=== PATIENT | female | born 1970 | race Caucasian/White ===

== ENCOUNTER 2025-09-04 13:58 | Emergency (ER) | payer MEDICAID, SELFPAY ==
--- OUTSIDE RECORDS SUMMARY | 2025-07-29 15:00 | XMS_ITS | Encounter Summary ---
Author Organization [place] [address] Care Team Providers Care Vending Manager Name Role Phone Jose Manuel Mooney MD Unavailable [phone] Reynaldo Cervantes MD Unavailable [phone] Corie Hennessy MD Unavailable [phone] Job Arboleda MD Primary Care Provider [phone] Reason for Referral * Genetic Lab Test (Routine) - Authorization Not Needed Specialty Diagnoses / Procedures Referred By Austin santoro Referred To Contact Diagnoses Screening for colon cancer Procedures Job Nascimento MD [address] [place] [address] [place] [address] Phone: tel: fax: Referral ID Status Reason Start Date Expiration Date Visits Requested Visits Authorized [id number] Authorization Not Needed 07/29/2026 1 1 Reason for Visit * Reason Comments Annual Exam Chest Pain Sometimes has chest pain/nausea comes and goes but feels fine today Encounter Details Date Type Department Care Team (Latest Contact Info) Description 07/29/2025 3:00 PM EST Office Visit [facility] [address] [place] [address] Job Arboleda MD [address] [place] [address] [address], [place] [address] Annual physical exam (Primary Dx); Essential hypertension; Screening for colon cancer; Type 2 diabetes mellitus with hyperlipidemia (HCC); Diabetic peripheral neuropathy (HCC) Social History Tobacco Use Types Packs/Day Years Used Date Smoking Tobacco: Never Passive Smoke Exposure: Never Smokeless Tobacco: Never Alcohol Use Standard Drinks/Week Comments No 0 (1 standard drink = 0.6 oz pur e alcohol) Overall Financial Resource Strain (CARDIA) Answe r Date Recorded How hard is it for you to pa y for the very basics like food, housing, medical care, and heating? Not hard at all 07/13/2021 PHQ-2 Answer Date Recorded PHQ-2 Total Score 0 07/29/2025 [facility] - Occupational Stress Questionnaire Answer Date Recorded Do you feel stress - tense, restless, nervous, or anxious, or unable to sleep at night because your mind is troubled all the time - these days? Only a little 07/13/2021 Exercise Vital Sign Answer Date Recorde d On average, how many days pe r week do you engage in moderate to strenuous exercise (like a brisk walk)? 3 days 07/13/2021 On average, how many minutes do you engage in exercise at this level? 30 min 07/13/2021 Hunger Vital Sign Answer Date Recorded Within the past 12 months, y ou worried that your food would run out before you got the money to buy more. Never true 07/13/20 21 Within the past 12 months, t he food you bought just didn't last and you didn't have money to get more. Never true 07/13/2021 PRAPARE - Transportation Answer Date Re corded In the past 12 months, has l ack of transportation kept you from medical appointments or from getting medications? No 04/2021 In the past 12 months, has l ack of transportation kept you from meetings, work, or from getting things needed for daily living? No 07/13/2021 Sexually Active Control Partners Comments Yes Post-menopausal Male Comments No Sex and Gender Information Value Date Recorded Sex Assigned at Not on file Legal Sex Female 1:04 PM EDT Gender Identity Not on file Sexual Orientation Not on file Occupation Industry Job Start Date Job End Date disable for heart Not on file Not on file Not on bunny e documented as of this encounter Last Filed Vital Signs Vital Sign Reading Time Taken Comments Blood Pressure 130/70 07/29/2025 2:53 PM EST Pulse 73 07/29/2025 2:53 PM EST Temperature 36.7 C (98 F) 07/29/2025 2:53 PM EST Respiratory Rate 18 07/29/2025 2:53 PM EST Oxygen Saturation 98% 07/29/2025 2:53 PM EST Inhaled Oxygen Concentration - - Weight 87.5 kg (193 lb) 07/29/2025 2:53 PM EST Height 152.4 cm (5') 07/29/2025 2:53 PM EST Body Mass Index 37.69 07/29/2025 2:53 PM EST documented in this encounter Functional Status * Is the person deaf or does he/she have serious difficulty hearing? Answer Date of Assessment Author No 11/30/2022 10:25 AM Wei Tapia MA * Is the person blind or does he/she have serious difficulty seeing even when wearing glasses? Answer Date of Assessment Author No 11/30/2022 10:25 AM Wei Tapia MA * Does this person have serious difficulty walking or climbing stairs? Answer Date of Assessment Author No 11/30/2022 10:25 AM Wei Tapia MA * Does this person have difficulty dressing or bathing? Answer Date of Assessment Author No 11/30/2022 10:25 AM Wei Tapia MA * Because of a physical, mental or emotional condition, does this person have difficulty doing errands alone such as visiting a doctor's office or shopping? Answer Date of Assessment Author No 11/30/2022 10:25 AM Wei Tapia MA * PHQ-9 Total Score Answer Date of Assessment Author 0 07/29/2025 2:57 PM EST Miguelangel Navarro MA * Over the last 2 weeks, how often have you been bothered by any of the following problems? Question Answer Date of Assessment Author Little interest or pleasure in doing things 0 07/29/2025 2:57 PM EST Meghna Navarro MA Feeling down, depressed, or hopeless 0 07/29/2025 2:57 PM Meghna Stevenson MA PHQ-2 Total Score 0 07/29/2025 2:57 PM Meghna Stevenson MA * PHQ-2 Total Score Answer Date of Assessment Author 0 07/29/2025 2:57 PM Miguelangel Stevenson MA documented as of this encounter Mental Status * Because of a physical, mental or emotional condition, does this person have serious difficulty concentrating, remembering or making decisions? Answer Entry Date Author No 11/30/2022 10:25 AM EDT Wei Gonzalez MA documented in this encounter Ordered Prescriptions Prescription Sig Dispense Quantity Refills Last Filled Start Date End Date pregabalin (LYRICA) 50 mg Oral CapsuleIndications :Diabetic peripheral neuropathy (HCC) Take 1 Capsule by mouth 3 times daily. 90 Capsule 2 07/29/2025 documented in this encounter Progress Notes * Job Arboleda MD - 07/29/2025 3:00 PM ESTAssociated Problem(s): Essential hypertension Hypertension at goal today continue current regiment Orders: COMPREHENSIVE METABOLIC PANEL * Job Arboleda MD - 07/29/2025 3:00 PM ESTAssociated Problem(s): Type 2 diabetes mellitus with hyperlipidemia (HCC) Up-to-date on diabetic eye exam and microalbumin screens. Follow-up A1c and adjust diabetic regimenas needed. Orders: TSH REFLEX TO FT4 COMPREHENSIVE METABOLIC PANEL HEMOGLOBIN A1C LIPID PANEL REFLEX * Job Arboleda MD - 07/29/2025 3:00 PM ESTAssociated Problem(s): Diabetic peripheral neuropathy (HCC) Orders: pregabalin (LYRICA) 50 mg Oral Capsule; Take 1 Capsule by mouth 3 times daily. Diabetic neuropathy well-controlled with current dose of Lyrica. No reported side effects of drowsiness or confusion. * Job Arboleda MD - 07/29/2025 3:00 PM EST Assessment & Plan Annual physical exam Orders: TSH REFLEX TO FT4 COMPREHENSIVE METABOLIC PANEL HEMOGLOBIN A1C LIPID PANEL REFLEX CBC WITH DIFF Colon cancer screening order with Cologuard testing per below. Up-to-date on Pap smear and breast cancer screening. Follow-up screening labs Essential hypertension Hypertension at goal today continue current regiment Orders: COMPREHENSIVE METABOLIC PANEL Screening for colon cancer Discussed risk benefits and options for colon cancer screening patient agreed to screening as ordered with Cologuard testing. Previous history of colonoscopy but that was normal no colon polyps at that time Orders: COLOGUARD; Future Type 2 diabetes mellitus with hyperlipidemia (HCC) Up-to-date on diabetic eye exam and microalbumin screens. Follow-up A1c and adjust diabetic regimenas needed. Orders: TSH REFLEX TO FT4 COMPREHENSIVE METABOLIC PANEL HEMOGLOBIN A1C LIPID PANEL REFLEX Diabetic peripheral neuropathy (HCC) Orders: pregabalin (LYRICA) 50 mg Oral Capsule; Take 1 Capsule by mouth 3 times daily. Diabetic neuropathy well-controlled with current dose of Lyrica. No reported side effects of drowsiness or confusion. Progress Note: Vitals: 07/29/25 1453 BP: 130/70 Pulse: 73 Resp: 18 Temp: 98 ??F (36.7 ??C) TempSrc: Temporal SpO2: 98% Weight: 193 lb (87.5 kg) Height: 5' (1.524 m) Body mass index is 37.69 kg/m??. SUBJECTIVE: Chief Complaint Patient presents with Annual Exam Chest Pain Sometimes has chest pain/nausea comes and goes but feels fine today HPI: Well Adult: Subjective Ms. Stewart is a 55 y.o. female here for an annual wellness visit. Has a history of diabetes. Due for refill of Lyrica for diabetic neuropathy. Symptoms well-controlled with this. Sugars are typically well-controlled less than 150 for the most part. Due for colon cancer screening. Up-to-date on breast cancer screening and cervical cancer screening. Diet: Eats a varied diet Exercise: Limited physical activity Activities of Daily Living: Functional Level: Self-care ADL Limitations: none Social Interaction Screen: Do you have concerns about issues that may impact social interaction such as developmental or behavioral/mental health conditions? no Health Maintenance Due Topic Date Due Colon Cancer Screening 05/22/2025 Health Maintenance Topic Date Due Colon Cancer Screening 05/22/2025 Hemoglobin A1c 07/30/2025 (Originally 07/20/2025) Zoster (1 of 2) 07/30/2025 (Originally 2018) COVID-19 Vaccine (1 - 2024- season) 2025 (Originally 05/06/2025) Pneumococcal Vaccine 50+ (1 of 1 - PPSV23, PCV20, or PCV21) 07/30/2025 (Originally 08/05/2016) Hepatitis B Vaccine (1 of 3 - 19+ 3-dose series) 07/30/2025 (Originally 1987) Lipids 01/17/2026 Kidney Health: eGFR 01/17/2026 Kidney Health: uACR 01/18/2026 Annual Wellness Exam 07/29/2026 Diabetic Eye Exam 09/03/2026 Breast Cancer Screening 10/18/2026 DTaP/TDaP/Td (2 - Td or Tdap) 07/05/2027 Cervical Cancer Screening 12/07/2028 Influenza Vaccine Completed Meningococcal B Vaccine Aged Out Immunization History Administered Date(s) Administered Influenza Patient Reported 07/23/2013, 06/10/2016 Influenza Seasonal Injectable 07/23/2013 Influenza Seasonal Injectable PF 08/09/2014, 07/29/2015, 08/06/2024, 05/31/2025 Influenza Vaccine Quadrivalent 07/05/2017 Influenza Vaccine Quadrivalent PF 08/18/2023 Influenza Vaccine, Unspecified Formulation 06/05/2016 Influenza Virus Vaccine Quadrivalant, Flublok 12/03/2019, 05/18/2021, 06/08/2022 Pneumococcal Conjugate Vaccine 13 Valent 06/10/2016 Tdap 07/05/2017 Problem List[1] Past Medical History[2] Surgical History[3] Allergies[4] Medications ordered prior to the current encounter[5] Social History[6] Family History[7] No results found. No results found for this visit on 07/29/25. Patient Care Team: Job Arbloeda MD as PCP - General (Family Medicine) Jose Manuel Mooney MD as Physician (Internal Medicine-Gastroenterology) Reynaldo Cervantes MD (Internal Medicine-Cardiovascular Disease) Corie Hennessy MD as Consulting Physician (Internal Medicine-Endocrinology, Diabetes & Metabolism) Lab Results Component Value Date WBC 9.9 12/11/2024 HGB 14.0 12/11/2024 HCT 44.8 12/11/2024 PLT 368 12/11/2024 CHOLESTEROL 124 01/17/2025 TRIG 101 01/17/2025 HDL 40 01/17/2025 LDLCALC 65 01/17/2025 ALT 14 12/11/2024 AST 19 12/11/2024 NA 140 01/17/2025 K 3.3 (L) 01/17/2025 CL 102 01/17/2025 CREATININE 0.75 01/17/2025 BUN 13 01/17/2025 CO2 27 01/17/2025 TSH 0.244 (L) 11/04/2023 INR 0.96 09/03/2021 GLUCOSE 97 01/05/2023 GLU 126 (H) 01/17/2025 HGBA1C 6.6 (H) 01/17/2025 TSHREFLEX 0.556 08/20/2024 Additional issues addressed today: Review of Systems Constitutional: Negative for activity change, chills, diaphoresis and fever. HENT: Negative for trouble swallowing and voice change. Eyes: Negative for visual disturbance. Respiratory: Negative for cough and shortness of breath. Cardiovascular: Negative for chest pain and palpitations. Gastrointestinal: Negative for diarrhea, nausea and vomiting. Musculoskeletal: Negative for gait problem and myalgias. Skin: Negative for rash. Neurological: Negative for dizziness and headaches. Psychiatric/Behavioral: Negative for decreased concentration, dysphoric mood, sleep disturbance andsuicidal ideas. The patient is not nervous/anxious. OBJECTIVE: Physical Exam Vitals reviewed. Constitutional: General: She is not in acute distress. Appearance: She is well-developed. She is not diaphoretic. HENT: Head: Normocephalic and atraumatic. Right Ear: Tympanic membrane normal. Left Ear: Tympanic membrane normal. Eyes: Pupils: Pupils are equal, round, and reactive to light. Cardiovascular: Rate and Rhythm: Normal rate and regular rhythm. Pulmonary: Effort: Pulmonary effort is normal. Breath sounds: Normal breath sounds. No wheezing. Abdominal: Palpations: Abdomen is soft. Tenderness: There is no abdominal tenderness. There is no guarding or rebound. Musculoskeletal: Right lower leg: No edema. Left lower leg: No edema. Skin: Findings: No rash. Neurological: General: No focal deficit present. Mental Status: She is alert and oriented to person, place, and time. Psychiatric: Behavior: Behavior normal. Thought Content: Thought content normal. Judgment: Judgment normal. [1] Patient Active Problem List Diagnosis Obesity Mixed hyperlipidemia Mild persistent asthma without complication ST elevation myocardial infarction involving left anterior descending (LAD) coronary artery (HCC) ASHD (arteriosclerotic heart disease) Essential hypertension Fibromyalgia Anxiety and depression Irritable bowel syndrome with both constipation and diarrhea Unstable angina (HCC) Gastroesophageal reflux disease without esophagitis Mixed incontinence Chronic midline low back pain without sciatica Paresthesia of both hands Encounter for medication management Insomnia, persistent Type 2 diabetes mellitus with hyperlipidemia (HCC) Thyroid malignant neoplasm (HCC) Postsurgical hypothyroidism Diabetic peripheral neuropathy (HCC) Type 2 diabetes mellitus without retinopathy (HCC) Refractive error Allergic conjunctivitis of both eyes Primary open-angle glaucoma, bilateral, indeterminate stage [2] Past Medical History: Diagnosis Date Anxiety and depression Arthritis back Asthma inhaler CAD (coronary artery disease) multiple stents ( 5) Cancer (HCC) thyroid Depression Fibromyalgia Glaucoma (increased eye pressure) Headache(784.0) Heartburn Hyperlipidemia Hypertension Hyperthyroidism Impaired glucose tolerance 06/25/2016 Irritable bowel syndrome Mixed incontinence 05/18/2019 Other specified disorder of kidney and ureter frequency Pneumonia 2005 Solitary thyroid nodule 06/22/2021 Thyroid cancer (HCC) Thyroid disease cancer Type 2 diabetes mellitus with diabetic chronic kidney disease (HCC) 07/14/2021 Ulcer 2001 Unspecified sleep apnea no machine [3] Past Surgical History: Procedure Laterality Date CARDIAC CATHETERIZATION CHOLECYSTECTOMY, LAPAROSCOPIC 02/05/2013 Surgeon: Mick Orozco MD; Location: [facility] OR; Service: COLONOSCOPY 2014 CORONARY ANGIOPLASTY CORONARY ANGIOPLASTY WITH STENT PLACEMENT 03/17/2016 3 stents CORONARY PERCUTANEOUS INTERVENTION(PCI) N/A 02/04/2019 Surgeon: Matthias Mcintyre MD; Location: [facility]; Service: Cardiac FINGER SURGERY 2002 index finger on left hand to repair a nerve HERNIA REPAIR 1974 PELVIC LAPAROSCOPY 2007 THYROIDECTOMY Right 09/07/2021 total thyroidectomy, selective neck dissection; Surgeon: Kenroy Frausto MD; Location: ED MAIN OR; Service: ENT [4] Allergies Allergen Reactions Ciprofloxacin Other (See Comments) Effects muscles/muscle strain (pt has fibromyalgia) Levaquin [Levofloxacin] Other (See Comments) Effects muscles (pt has fibromyalgia) Adhesive Rash Erythromycin Nausea Only [5] Current Outpatient Medications on File Prior to Visit Medication Sig Dispense Refill acetaminophen (TYLENOL) 500 mg Oral Tablet Take 1,000 mg by mouth 2 times daily as needed for Pain. albuterol (PROVENTIL HFA;VENTOLIN HFA) 90 mcg/actuation Inhl HFA Aerosol Inhaler Inhale 2 Puffs into the lungs every 4 hours as needed for Wheezing. 1 Each 2 APPLE CIDER VINEGAR ORAL Take by mouth. aspirin 81 mg Oral Tablet, Delayed Release (E.C.) Restart on 09/11/21 1 Tablet 0 Blood-Glucose Meter Misc Kit Please dispense what is covered by insurance. 1 Kit 0 cetirizine (ZYRTEC) 10 mg Oral Tablet Take 1 Tablet by mouth daily. 30 Tablet 2 diclofenac (VOLTAREN) 1 % Top Gel Apply 2 g topically 4 times daily. 100 g 1 dicyclomine (BENTYL) 20 mg Oral Tablet Take 1 Tablet by mouth 3 times daily as needed. 90 Tablet 2 Digestive Enzymes Oral Capsule Take by mouth. DULoxetine 40 mg Oral Capsule, Delayed Release(E.C.) TAKE 1 CAPSULE BY MOUTH EVERY DAY 90 Capsule 0 empagliflozin (JARDIANCE) 10 mg Oral Tablet TAKE 1 TABLET BY MOUTH EVERY DAY 100 Tablet 1 famotidine (PEPCID) 40 mg Oral Tablet Take 1 Tablet by mouth 2 times daily. 180 Tablet 3 fluticasone propionate (FLONASE) 50 mcg/actuation Nasl [place], Suspension SPRAY 2 SPRAYS BY NASAL ROUTE DAILY 16 mL 2 fluticasone propionate (FLOVENT HFA) 220 mcg/actuation Inhl HFA Aerosol Inhaler INHALE 2 PUFFS INTOTHE LUNGS TWICE A DAY 12 Each 0 fructooligosaccharides (PREBIOTIC FIBER, FOS,) 2.5 gram Oral Tablet, Chewable Take by mouth. hydroCHLOROthiazide 12.5 mg Oral Tablet Take 1 Tablet by mouth daily. 90 Tablet 3 ipratropium (ATROVENT) 21 mcg (0.03 %) Nasl [place], Non-Aerosol 2 Sprays by Nasal route 3 times daily. 30 mL 2 KLOR-CON M10 10 mEq Oral Tab Sust.Rel. Particle/Crystal TAKE 1 TABLET BY MOUTH EVERY DAY 90 Tablet 3 Lancets [facility] Please dispense what is covered by insurance. 100 Each 2 latanoprost (XALATAN) 0.005 % Opht Drops APPLY 1 DROP TO EYE NIGHTLY. 2.5 mL 3 LEVOthyroxine (SYNTHROID) 75 mcg Oral Tablet TAKE 1 TABLET BY MOUTH EVERY DAY 100 Tablet 0 lisinopriL (PRINIVIL;ZESTRIL) 10 mg Oral Tablet TAKE 1 TABLET BY MOUTH EVERY DAY 100 Tablet 1 metFORMIN (GLUCOPHAGE XR) 500 mg Oral ER 24 hr tablet TAKE 1 TABLET BY MOUTH EVERY DAY WITH BREAKFAST 100 Tablet 1 methocarbamoL (ROBAXIN) 500 mg Oral Tablet TAKE 1 TABLET BY MOUTH THREE TIMES A DAY 90 Tablet 2 metoprolol (LOPRESSOR) 25 mg Oral Tablet TAKE 1 TABLET BY MOUTH TWICE A DAY 200 Tablet 2 naproxen (NAPROSYN) 500 mg Oral Tablet TAKE 1 TABLET BY MOUTH TWICE A DAY WITH FOOD 60 Tablet 2 olopatadine (PATADAY) 0.2 % Opht Drops Place 1 Drop into both eyes daily. 5 mL 3 ondansetron (ZOFRAN-ODT) 4 mg Oral Tablet, Rapid Dissolve Dissolve 1 Tablet by mouth every 4 hours as needed for Nausea. 20 Tablet 0 ONETOUCH ULTRA TEST [facility] USE 1 STRIP DAILY 50 Strip 11 rosuvastatin (CRESTOR) 40 mg Oral Tablet TAKE 1 TABLET BY MOUTH EVERY DAY AT NIGHT 90 Tablet 2 triamcinolone (KENALOG) 0.1 % Top Cream Apply topically 2 times daily. 80 g 2 No current facility-administered medications on file prior to visit. [6] Social History Socioeconomic History Marital status: Spouse name: None Number of children: None Years of education: None Highest education level: None Occupational History Occupation: disable for heart Tobacco Use Smoking status: Never Passive exposure: Never Smokeless tobacco: Never Vaping Use Vaping status: Never Used Substance and Sexual Activity Alcohol use: No Drug use: Never Sexual activity: Yes Partners: Male control/protection: Post-menopausal Social Drivers of Health Financial Resource Strain: Low Risk (07/13/2021) Overall Financial Resource Strain (CARDIA) Difficulty of Paying Living Expenses: Not hard at all Food Insecurity: No Food Insecurity (07/13/2021) Hunger Vital Sign Worried About Running Out of Food in the Last Year: Never true Ran Out of Food in the Last Year: Never true Transportation Needs: No Transportation Needs (07/13/2021) PRAPARE - Transportation Lack of Transportation (Medical): No Lack of Transportation (Non-Medical): No Physical Activity: Insufficiently Active (07/13/2021) Exercise Vital Sign Days of Exercise per Week: 3 days Minutes of Exercise per Session: 30 min Stress: No Stress Concern Present (07/13/2021) [employer] [place] [facility] [employer] [facility] - Occupational Stress Questionnaire Feeling of Stress : Only a little [7] Family History Problem Relation Age of Onset Heart Disease Mother 50 [place] in 50's but at age 76 Diabetes Mother Depression Mother Thyroid Disease Mother Stroke Mother Cancer Father lung Depression Father Heart Disease Maternal Grandmother Diabetes Maternal Grandmother Thyroid Disease Maternal Grandmother High Cholesterol Sister High Blood Pressure Sister Alcohol Abuse Brother Back Problems Brother High Blood Pressure Sister High Cholesterol Sister Osteoporosis Sister Back Problems Brother * Caroline Washington - 07/29/2025 3:00 PM EST Venipuncture in the left antecubital vein with 21 gauge needle, length 1 1/2 inch. documented in this encounter Plan of Treatment Upcoming Encounters Date Type Department Care Team (Late st Contact Info) Description 09/09/2025 1:05 PM EST Office Visit [facility] [address] [facility] [address] [place] [address] Silvino Marcus OD [address] [place] [address] 11/06/2025 1:50 PM EST Office Visit [facility] [address] [address] Reynaldo Cervantes MD [address] [place] [address] [place] [address] Scheduled Orders Name Type Priority Associated Diagnoses Orde r Schedule COLOGUARD Microbiology Routine Screening for colon cancer 1 Occurrences starting 07/29/2025 until 07/29/2026 documented as of this encounter Goals Goal Patient Goal Type Associated Problems Recent Progress Patient-Stated? Author Blood Pressure < 140/90 Blood Pressure 130/70(2024 2:53 PM EST) No Alma Delia Manriquez L, RMA Maintain a healthy diet, exercise regularly and maintain an ideal body weight General No DeclanMarvinya L, RMA BMI (Calculated) < 30 General 37.8(07/29/20 2:53 PM EST) No Mallory Dickinson APRN A1C < 7.0 General On track( 10:44 AM EDT) Yes Virgen Lincoln RN Will take medications as directed by provider General On track( 10:44 AM EDT) Yes Virgen Lincoln RN HEMOGLOBIN A1C < 7 Result Component 6.2( 3:15 PM EST) No Mallory Dickinson APRN documented as of this encounter Procedures Procedure Name Priority Date/Time Associated Diagnosis Comments LIPID PANEL REFLEX Routine 07/29/2025 3: 15 PM EST Annual physical exam Type 2 diabetes mellitus with hyperlipidemia (HCC) TSH REFLEX TO FT4 Routine 07/29/2025 3:1 5 PM EST Annual physical exam Type 2 diabetes mellitus with hyperlipidemia (HCC) CBC WITH DIFF Routine 07/29/2025 3:15 PM EST Annual physical exam HEMOGLOBIN A1C Routine 07/29/2025 3:15 PM EST Annual physical exam Type 2 diabetes mellitus with hyperlipidemia (HCC) COMPREHENSIVE METABOLIC PANEL Routine 07/29/2025 3:15 PM EST Annual physical exam Essential hypertension Type 2 diabetes mellitus with hyperlipidemia (HCC) documented in this encounter Results * (ABNORMAL) CBC WITH DIFF (07/29/2025 3:15 PM EST) WBC 9.7 3.7 - 10.3 x10(3)/mcL 07/29/2025 9:27 PM EST [facility] RBC 5.12 3.90 - 5.20 x10(6)/mcL 07/29/2025 9:27 PM EST [facility] Hgb 13.5 11.2 - 15.7 g/dL 07/29/2025 9:27 PM EST [facility] Hct 43.6 34.0 - 45.0 % 07/29/2025 9:27 PM EST [facility] MCV 85.2 80.0 - 100.0 fL 07/29/2025 9:27 PM EST [facility] MCH 26.4 26.0 - 34.0 pg 07/29/2025 9:27 PM EST [facility] MCHC 31.0 30.7 - 35.5 g/dL 07/29/2025 9:27 PM EST [facility] RDW 16.0(H) <=14.9 % 07/29/2025 9:27 PM EST [facility] Platelet 334 155 - 369 x10(3)/mcL 07/29/2025 9:27 PM EST [facility] MPV 10.9 8.8 - 12.5 fL 07/29/2025 9:27 PM EST [facility] Neut Percent 60.2 % 07/29/2025 9:27 PM EST [facility] Comment:Neutrophils equals s egs plus bands Imm Gran% 0.3 % 07/29/2025 9:27 PM EST [facility] Comment:Automated count of m etamyelocytes, myelocytes and promyelocytes. Lymph Percent 27.6 % 07/29/2025 9:27 PM EST [facility] Harper Percent 8.0 % 07/29/2025 9:27 PM EST [facility] Eos Percent 3.3 % 07/29/2025 9:27 PM EST [facility] Baso Percent 0.6 % 07/29/2025 9:27 PM EST [facility] Neut # 5.8 1.6 - 6.1 x10(3)/mcL 07/29/2025 9:27 PM EST [facility] Comment:Neutrophils equals s egs plus bands IMMGRAN# 0.0 0.0 - 0.1 x10(3)/mcL 07/29/2025 9:27 PM EST [facility] Comment:Automated count of m etamyelocytes, myelocytes and promyelocytes. An absolute IG <0.1 is reported as 0.0. Lymph # 2.7 1.2 - 3.9 x10(3)/mcL 07/29/2025 9:27 PM EST [facility]ED [facility] [employer], [facility] Harper # 0.8 0.3 - 0.9 x10(3)/mcL 07/29/2025 9:27 PM EST [facility] [employer], [facility] Eos# 0.3 0.0 - 0.5 x10(3)/mcL 07/29/2025 9:27 PM EST [facility] [employer], [facility] Baso # 0.1 0.0 - 0.1 x10(3)/mcL 07/29/2025 9:27 PM EST [facility] Blood VENOUS BLOOD / Unknown Venipuncture / Unknown 07/29/2025 3:15 PM EST 07/29/2025 3:15 PM EST Job Arboleda MD HEMATOLOGY ORDERABLES Final Re sult [facility] [address] [facility] , [place] [address] * (ABNORMAL) LIPID PANEL REFLEX (07/29/2025 3:15 PM EST) Cholesterol 123 <200 mg/dL 07/29/2025 10:17 PM EST [facility] Comment: < 200 Desirable 200 - 239 Borderline High >= 240 High Triglyceride 142 <150 mg/dL 07/29/2025 10:17 PM EST [facility] Comment: < 150 Normal 150 - 199 Borderline High 200 - 499 High >= 500 Very High HDL 37(L) >=40 mg/dL 07/29/2025 10:17 PM EST [employer], [facility] Comment: > 60 Optimal 40 - 60 Acceptable < 40 Low LDL Calculated 61 <100 mg/dL 07/29/2025 10:17 PM EST [facility] Comment: < 100 Optimal 100 - 129 Near or above optimal 130 - 159 Borderline High 160 - 189 High >= 190 Very High The National Institutes of Health (NIH) equation is used for all lipid panels that report calculated LDL (LDL-C). Non-HDL-C Calculated 86 <=129 mg/dL 07/29/2025 10:17 PM EST [facility] Comment: <130 Desirable 130-159 Above Desirable 160-189 Borderline High 190-219 High >= 220 Very High Fasting Specimen? No None 025 10:17 PM EST [facility] [employer] Blood VENOUS BLOOD / Unknown Venipuncture / Unknown 07/29/2025 3:15 PM EST 07/29/2025 3:15 PM EST Job Arboleda MD CHEMISTRY ORDERABLES Final Res ult Performing Organization Address [facility] Co de Phone Number [facility] [address] [place] [address] , [place] [address] * (ABNORMAL) HEMOGLOBIN A1C (07/29/2025 3:15 PM EST) Hgb A1C 6.2(H) 4.2 - 5.6 % 07/29/2025 10:01 PM EST [facility] Est. Avg Glucose 131 mg/dL 07/29/2025 10:01 PM EST [facility] Blood VENOUS BLOOD / Unknown Venipuncture / Unknown 07/29/2025 3:15 PM EST 07/29/2025 3:15 PM EST Narrative [facility] - 07/29/2025 10:01 PM EST REFERENCE RANGE: Normal: 4.0-5.6% Pre-diabetes: 5.7-6.4% Provisional diagnosis of diabetes: >6.4% Hgb F>10% and anything which shortens red cell survival, such as hemolytic anemia, or unstable hemoglobin variants such as HbSS, HbSC, or HbCC, will lower the HbA1c value associated with a given level of glycemic control. Job Arboleda MD CHEMISTRY ORDERABLES Final Res ult Performing Organization Address [facility] Co de Phone Number [employer] [address] , [place] [address] * (ABNORMAL) COMPREHENSIVE METABOLIC PANEL (07/29/2025 3:15 PM EST) Sodium 144 136 - 145 mmol/L 07/29/2025 10:17 PM EST [facility] Potassium 3.7 3.5 - 5.0 mmol/L 07/29/2025 10:17 PM EST [facility] Chloride 104 98 - 107 mmol/L 07/29/2025 10:17 PM EST [facility] Total CO2 28 22 - 29 mmol/L 07/29/2025 10:17 PM EST [facility] Anion Gap 12 7 - 16 mmol/L 07/29/2025 10:17 PM EST [facility] Calcium 10.0 8.6 - 10.4 mg/dL 07/29/2025 10:17 PM EST [facility] Glucose Lvl 110(H) 70 - 99 mg/dL 07/29/2025 10:17 PM EST [facility] BUN 15 6 - 20 mg/dL 07/29/2025 10:17 PM EST [facility] Creatinine 0.68 0.51 - 1.30 mg/dL 07/29/2025 10:17 PM EST [facility] Albumin 4.4 3.5 - 5.2 gm/dL 07/29/2025 10:17 PM EST [facility] Total Protein 6.9 6.4 - 8.3 gm/dL 07/29/2025 10:17 PM EST [facility] Bili Total 0.2 0.2 - 1.3 mg/dL 07/29/2025 10:17 PM EST [facility] ALT 15 <=41 U/L 07/29/2025 10:17 PM EST [facility] AST 16 <=40 U/L 07/29/2025 10:17 PM EST [facility] Alk Phos 103 36 - 123 U/L 07/29/2025 10:17 PM EST [facility] eGFR (CKD-EPIcr 2020) 100 >=60 mL/min/1.7 3 m2 07/29/2025 10:17 PM EST [facility] Comment:Estimated GFR was ca lculated using the CKD-EPIcr (2020) equation refit without race. The equation is recommended by the National Kidney [employer] - [place] [employer] Task [employer]. Blood VENOUS BLOOD / Unknown Venipuncture / Unknown 07/29/2025 3:15 PM EST 07/29/2025 3:15 PM EST us Job Arboleda MD CHEMISTRY ORDERABLES Final Res ult Performing Organization Address [facility] de Phone Number [facility] [address] [place] [address] [place] [address] * TSH REFLEX TO FT4 (07/29/2025 3:15 PM EST) TSH Reflex 1.180 0.270 - 4.200 mcIU/mL 07/29/2025 10:17 PM EST [facility] Blood VENOUS BLOOD / Unknown Venipuncture / Unknown 07/29/2025 3:15 PM EST 07/29/2025 3:15 PM EST Narrative [facility] - 07/29/2025 10:17 PM EST Ingestion of joel doses of biotin (>5 mg/day) taken within 8 hours of drawing blood sample can interfere with this immunoassay test. us Job Arboleda MD CHEMISTRY ORDERABLES Final Res ult Performing Organization Address [facility] de Phone Number [facility] [address] [place] [address] [place] [address] documented in this encounter Visit Diagnoses Diagnosis Annual physical exam- Primary Routine general medical examination at a health care facility Essential hypertension Unspecified essential hypertension Screening for colon cancer Special screening for malignant neoplasms, colon Type 2 diabetes mellitus with hyperlipidemia (HCC) Diabetic peripheral neuropathy (HCC) Type II or unspecified type diabetes mellitus with neurological manifestations, not stated as uncontrolled documented in this encounter Discontinued Medications Medication Sig Discontinue Reason Start Date End Da te pregabalin (LYRICA) 50 mg Oral CapsuleIndications:Diabe tic peripheral neuropathy (HCC) TAKE 1 CAPSULE BY MOUTH THREE TIMES A DAY Reorder 12/31/2024 07/29/2025 documented as of this encounter Care Teams Vending Manager Relationship Specialty Start Date End Date Job Arboleda MD [address] [place] [address] [place] [address] PCP - General Family Medicine 11/23/22 Jose Manuel Mooney MD Physician Internal Medicine-Gastroenterolo gy 04/17/15 Reynaldo Cervantes MD [address] [place] [address] [place] [address] Internal Medicine-Cardiovascular Disease 07/08/16 Corie Hennessy MD [address] [place] [address] Consulting Physician Internal Medicine-Endocrinology, Diabetes & Metabolism 11/25/21 documented as of this encounter
[2025-09-04] VITALS (8 sets, daily range): BP systolic 136–178; BP diastolic 80–98; PULSE 82–115; RESP 18–25; TEMP 36.8–36.9; O2SAT 95–98; BMI 37.0
--- NOTE | 2025-09-04 13:58 | ED_ITS ---
<Statement entered by Byron Argueta MD - 09/05/25 15:14> Byron Argueta MD: I was consulted by the FREDA, and we discussed the complexity of the problems being addressed. I approve the treatment and management plan for this patient's care in the emergency department, thus performing a substantive portion of the medical decision making. Discharge Plan Disposition Patient Disposition: Home, Self-Care Condition: Good Prescriptions Prescriptions: No Action latanoprost 0.005 % drops 1 drp ophthalmic (eye) HS methocarbamol 500 mg tablet 500 mg PO TID cetirizine 10 mg tablet 10 mg PO DAILY famotidine 40 mg tablet 40 mg PO BID levothyroxine 75 mcg tablet 75 mcg PO DAILY lisinopril 10 mg tablet 10 mg PO DAILY metformin 500 mg tablet extended release 24 hr 500 mg PO DAILY naproxen 500 mg tablet 500 mg PO BID rosuvastatin 40 mg tablet 40 mg PO HS potassium chloride 10 mEq tablet,ER particles/crystals 10 meq PO DAILY metoprolol tartrate 25 mg tablet 25 mg PO BID pregabalin 50 mg capsule 50 mg PO TID hydrochlorothiazide 12.5 mg tablet 12.5 mg PO DAILY Jardiance 10 mg tablet 10 mg PO DAILY duloxetine 40 mg capsule,delayed release(DR/EC) 40 mg PO DAILY Referrals Follow up/Referrals: Provider,Referral, [Referring, Medical] - See instructions Activity Restrictions/Add. Instructions Additional Instructions/Restrictions: You were evaluated on an emergency basis. It is very important that you follow- up with your primary care provider and any specialist who we discussed within the next 2 days in order to better assess your health more comprehensively. For example, incidental findings on imaging or laboratory results that were performed today may be discovered, which do not require immediate medical care, but may impact your health in the future. If your symptoms worsen or persist, please return to the emergency department immediately for reassessment. Take all medications as prescribed. In queue for allowing me to participate in your health care, and I hope you feel better soon. Clinical Impressions Clinical Impression: Tachycardia Instructions Patient Instructions: DI for Tachycardia Print Language Print Language: Slovenian Discharge ED Provider: Byron Argueta Adult HPI <Deandra Edson - Last Filed: 09/04/25 18:32> General Chief complaint: Shortness of Breath/Dyspnea Stated complaint: Weakness Time Seen by Provider: 09/04/25 14:00 History of Present Illness HPI narrative: 55-year-old female with a history of diabetes and coronary artery disease presents to the emergency department with complaints of generalized weakness, mild chest pain, tachycardia that started this morning. She denies fevers, vomiting, diarrhea but states she has had mild nausea. She has not had any aspirin prior to arrival. She reports she did take an albuterol neb prior to arrival Related Data Home Medications ?Medication ?Instructions ?Recorded ?Confirmed cetirizine 10 mg tablet 10 mg PO DAILY 09/04/2508/07 duloxetine 40 mg capsule,delayed 40 mg PO DAILY 09/04/25 release empagliflozin 10 mg tablet 10 mg PO DAILY 09/04/25 (Jardiance) famotidine 40 mg tablet 40 mg PO BID 09/04/25 hydrochlorothiazide 12.5 mg tablet 12.5 mg PO DAILY 09/04/25 latanoprost 0.005 % eye drops 1 drp ophthalmic (eye) H S 09/04/25 09/04/25 levothyroxine 75 mcg tablet 75 mcg PO DAILY 09/04/25 1 lisinopril 10 mg tablet 10 mg PO DAILY 09/04/2508/07 metformin 500 mg tablet,extended 500 mg PO DAILY 09/0409/04/25 release 24 hr methocarbamol 500 mg tablet 500 mg PO TID 09/04/25 metoprolol tartrate 25 mg tablet 25 mg PO BID 09/04/25 09/04/25 naproxen 500 mg tablet 500 mg PO BID 09/04/2509/04 potassium chloride 10 mEq 10 meq PO DAILY 09/04/25 tablet,extended release(part/cryst) pregabalin 50 mg capsule 50 mg PO TID 09/04/25 rosuvastatin 40 mg tablet 40 mg PO HS 09/04/25 5 Allergies Allergy/AdvReac Type Severity Reaction Status Date / Time azithromycin Allergy stomach Verified 05/15/18 17:30 pain ciprofloxacin (From Cipro) AdvReac muscle pain Verified 05/15/18 17:28 levofloxacin (From Levaquin) AdvReac muscle pain Verified 05/15/18 17:29 PFS <Deandra Sandhu - Last Filed: 09/04/25 18:32> [facility] Disclaimer: The information contained in this section may have been updated after the patient was seen, as this information can be updated by other users. Medical History (Updated 09/04/25 @ 18:32 by Deandra Sandhu) Hypercholesteremia Fibromyalgia Hypertension Social History (Updated 09/04/25 @ 18:32 by Deandra Sandhu) Smoking Status: Never smoker alcohol intake: never current occupational status: other Travel in the last 8 weeks?: None Have you lived/traveled outside [place] in past 30 days?: No Contact w/someone who lives/traveled outside US past 30 days?: No Exposure to someone with infectious disease in past 14 days?: No Do you have a fever (greater than 100.4 F or 38 C)?: No Have you tested positive for COVID-19?: No Exposed to someone with COVID-19 in past 14 days?: No Do you have a sore throat?: No Do you have a cough?: No Do you have any weakness?: No Do you have any diarrhea?: No Are you experiencing any unusual bleeding?: No Do you have any muscle aches/pain?: No Do you have any abdominal pain?: No Are you experiencing loss of taste or smell?: No Other Medical History Have you received the Flu Vaccine for this season: No <Deandra Sandhu - Last Filed: 09/04/25 18:32> ROS Obtained: Yes other Constitutional Constitutional: Reports weakness Cardiovascular Cardiovascular: Reports chest pain and Reports palpitations Gastrointestinal Gastrointestingal: Reports nausea Neurologic Neurologic: Reports weakness Endocrine Endocrine: Reports palpitations Physical Exam <Deandra Nicholsantoni - Last Filed: 09/04/25 18:32> Narrative Physical exam: General: Awake, aware, in no acute distress HEENT: Normocephalic, no evidence of trauma CV: RRR, no murmurs, rubs, or gallops Pulm: CTA bilaterally with no rhonchi, rales, wheezes ABD: Nontender, no swelling, guarding, or rebound tenderness Psych, appropriate mood and affect General General appearance: alert Respiratory Respiratory exam: Present normal lung sounds bilaterally Cardiovascular Cardiovascular exam: Present tachycardia Neurological Exam Neurological exam: Present alert Medical Decision Making <Deandra Sandhu - Last Filed: 09/04/25 18:32> Medical Records Screening: Per USPSTF and CDC recommendations, given the prevalence of disease in our region, it is our hospital?s policy to screen for HIV and viral Hepatitis for all patients aged 18 and over and those with ongoing risk factors. David Inquiry Pt receiving controlled substance: No Vital Signs: 09/04/25 13:54 09/04/25 14:07 09/04/25 15:46 Temperature 98.4 F Temperature Source Oral Pulse Rate 111 H 101 H Pulse Rate [Left Radial] 115 H Respiratory Rate 20 25 H 22 Blood Pressure 148/84 H Blood Pressure [Right Arm] 178/98 H Blood Pressure Mean 105 Blood Pressure Mean [Right Arm] 124 02 Sat by Pulse Oximetry 95 98 95 Oxygen Delivery Method Room Air 09/04/25 16:00 09/04/25 16:30 09/04/25 17:00 Temperature Temperature Source Pulse Rate 94 H 90 89 Pulse Rate [Left Radial] Respiratory Rate 20 21 23 Blood Pressure 140/81 151/80 H 138/89 Blood Pressure [Right Arm] Blood Pressure Mean 100 Blood Pressure Mean [Right Arm] 02 Sat by Pulse Oximetry 96 97 97 Oxygen Delivery Method Room Air Room Air 09/04/25 17:30 Temperature Temperature Source Pulse Rate 91 H Pulse Rate [Left Radial] Respiratory Rate 20 Blood Pressure 142/82 H Blood Pressure [Right Arm] Blood Pressure Mean 102 Blood Pressure Mean [Right Arm] 02 Sat by Pulse Oximetry 97 Oxygen Delivery Method Lab Data Lab Results 09/04/25 14:15: WBC 12.5 H, RBC 5.41 H, Hgb 14.6, Hct 45.9, MCV 84.8, MCH 27.0, MCHC 31.8, RDW 15.9, Plt Count 319, MPV 10.5 H, Neut % (Auto) 70.8, Lymph % (Auto) 19.5, [place] % (Auto) 7.0, Eos % (Auto) 1.4, Baso % (Auto) 0.6, Neut # (Auto) 8.8 H, Lymph # (Auto) 2.4, [place] # (Auto) 0.9, Eos # (Auto) 0.2, Baso # (Auto) 0.1, D-Dimer 6.06 H, Sodium 138, Potassium 4.4, Chloride 105, Carbon Dioxide 22, Anion Gap 15.4 H, BUN 12, Creatinine 0.90, Estimated Creat Clear 94, Estimated GFR 65, Est GFR ( Amer) 78, Glucose 163 H, Calcium 9.2, Magnesium 1.9, Total Bilirubin 0.9, AST 46 H, ALT 23, Alkaline Phosphatase 77, Troponin I < 0.01, NT-Pro-B Natriuret Pep 34.7, Total Protein 8.0, Albumin 4.7, Globulin 3.3 H, Albumin/Globulin Ratio 1.4, Lipase 131, TSH 0.79, Free T4 1.04 09/04/25 14:20: SARS-CoV-2 (PCR) Not detected, Influenza A Untype (PCR) Not detected, Influenza Type B (PCR) Not detected 09/04/25 14:22: Urine Color Yellow, Urine Appearance Clear, Urine pH 5.5, Ur Specific [place] 1.015, Urine Protein Negative, Urine Glucose (UA) 3+, Urine Ketones Negative, Urine Blood Trace-i, Urine Nitrate Negative, Urine Bilirubin Negative, Urine Urobilinogen 0.2, Ur Leukocyte Esterase Negative, Urine RBC Occasional, Urine WBC None, Ur Squamous Epith Cells 3-5, Urine Bacteria Trace 09/04/25 14:55: Lactate 1.7 09/04/25 17:17: Troponin I < 0.01 09/04/25 14:15 09/04/25 14:15 Orders (Tests/Meds): ED MEDICATIONS Discontinued Medications Generic Name Dose Route Start Last Admin Trade Name Fermin PRN Reason Stop Dose Admin Acetaminophen 1,000 mg 09/04/25 16:22 09/04/25 16:26 Acetaminophen 500mg Tab PO 09/04/25 16:23 1,000 mg ONCE ONE Administration Aspirin 162 mg 09/04/25 14:08 09/04/25 14:43 Aspirin 81mg Chewable Tablet PO 09/04/25 14:09 162 mg ONCE ONE Administration Sodium Chloride 1,000 mls @ 999 mls/hr 09/04/25 15:39 09/04/25 16:44 Sod Chlor 0.9% 1000ml Bag IV 09/04/25 16:39 Infused .Q1H1M ONE Infusion Iopamidol 80 ml 09/04/25 15:25 09/04/25 15:25 Iopamidol-370 (76%);100ml Bottle IV 09/04/25 15:26 80 ml ONCE ONE Administration Sodium Chloride 50 ml 09/04/25 15:25 09/04/25 15:25 0.9 % Sodium Chloride 50 Ml Vial IV 09/04/25 15:26 50 ml ONCE ONE Administration Sodium Chloride 10 ml 09/04/25 15:25 09/04/25 15:25 Sodium Chloride 0.9% 10ml Syr (Rad Only) IV 09/04/25 15:26 10 ml ONCE ONE Administration ORDERS Category Date Time Status CTA Chest [CT angio chest PE protocol] Stat Cat Scan 09/04/25 15:06 Completed XR chest portable Stat Exams 09/04/25 14:09 Completed Complete Blood Count Auto Diff Stat Lab 09/04/25 14:15 Completed Comprehensive Metabolic Panel Stat Lab 09/04/25 14:15 Completed D-Dimer Stat Lab 09/04/25 14:15 Completed Free T4 (Free Thyroxine) Stat Lab 09/04/25 14:15 Completed Lactic Acid Stat Lab 09/04/25 14:55 Completed Lipase Stat Lab 09/04/25 14:15 Completed Magnesium Stat Lab 09/04/25 14:15 Completed NT Pro Brain Natriuretic Pep. Stat Lab 09/04/25 14:15 Completed Rapid PCR Covid and Flu A/B Stat Lab 09/04/25 14:20 Completed TSH [Thyroid Stimulating Hormone] Stat Lab 09/04/25 14:15 Completed Troponin I Q3H Lab 09/04/25 17:17 Completed Troponin I Q3H Lab 09/04/25 20:15 Ordered Troponin I Stat Lab 09/04/25 14:15 Completed Urinalysis and Microscopic Stat Lab 09/04/25 14:22 Completed Medical Decision Narrative: Initial impression of presenting illness: 55-year-old female presents to the emergency department via EMS with complaints of generalized weakness, mild chest pain, racing heart rate since waking this morning. She states she has had mild nausea but denies vomiting, diarrhea, fevers, shortness of breath. She has not had any aspirin prior to arrival. She reports she did use an albuterol neb this morning. Differential diagnosis includes but is not limited to: ACS, heart failure, PE, pneumonia, viral illness, electrolyte abnormality, cardiac arrhythmia Patient arrives hemodynamically stable, afebrile, without respiratory distress with vital signs interpreted by myself. Initial physical exam general: Awake, aware, in no acute distress Initial diagnostic plan: Heart failure workup including D-dimer, COVID and flu swabs, urinalysis. Will give patient 162 mg of aspirin. Results from initial plan were reviewed and interpreted by myself, pertinent positives include: D-dimer 6.06, white blood cell count 12.5. Rest of laboratory studies were nonactionable. Chest x-ray was unremarkable for acute findings. Patient's elevated D-dimer CTA of chest was ordered that was unremarkable. Interventions in the ED: Patient was given 162 mg aspirin per ACS protocol as well as a normal saline bolus for hydration. Patient arrived tachypneic, tachycardic with an elevated white blood cell count however no infectious process was identified. Did not want to give patient sepsis bolus or antibiotics as did not feel that sepsis was a likely diagnosis and no infectious process was identified. Patient was made aware of the results and the findings, upon reevaluation patient has remained stable throughout stay, symptoms have improved. Upon reevaluation patient is no longer tachypneic or tachycardic. She is resting comfortably in bed with no signs of acute distress. Disposition: Reviewed finding today's workup with patient informed no acute abnormalities were noted. Recommend that she continue taking all previously prescribed medications. I also recommended that she reach out to her avionics supervisor to schedule close outpatient follow-up. Instructed her to return to the emergency department with any new or worsening symptoms. Patient was agreeable to plan of care. Patient made aware of findings and had a detailed discussion with symptomatic care and return precautions, patient voiced understanding. <Papito Fine MD - Last Filed: 09/04/25 18:47> Vital Signs: 09/04/25 13:54 09/04/25 14:07 09/04/25 15:46 Temperature 98.4 F Temperature Source Oral Pulse Rate 111 H 101 H Pulse Rate [Left Radial] 115 H Respiratory Rate 20 25 H 22 Blood Pressure 148/84 H Blood Pressure [Right Arm] 178/98 H Blood Pressure Mean 105 Blood Pressure Mean [Right Arm] 124 02 Sat by Pulse Oximetry 95 98 95 Oxygen Delivery Method Room Air 09/04/25 16:00 09/04/25 16:30 09/04/25 17:00 Temperature Temperature Source Pulse Rate 94 H 90 89 Pulse Rate [Left Radial] Respiratory Rate 20 21 23 Blood Pressure 140/81 151/80 H 138/89 Blood Pressure [Right Arm] Blood Pressure Mean 100 Blood Pressure Mean [Right Arm] 02 Sat by Pulse Oximetry 96 97 97 Oxygen Delivery Method Room Air Room Air 09/04/25 17:30 Temperature Temperature Source Pulse Rate 91 H Pulse Rate [Left Radial] Respiratory Rate 20 Blood Pressure 142/82 H Blood Pressure [Right Arm] Blood Pressure Mean 102 Blood Pressure Mean [Right Arm] 02 Sat by Pulse Oximetry 97 Oxygen Delivery Method Lab Data Lab Results 09/04/25 14:15: WBC 12.5 H, RBC 5.41 H, Hgb 14.6, Hct 45.9, MCV 84.8, MCH 27.0, MCHC 31.8, RDW 15.9, Plt Count 319, MPV 10.5 H, Neut % (Auto) 70.8, Lymph % (Auto) 19.5, [place] % (Auto) 7.0, Eos % (Auto) 1.4, Baso % (Auto) 0.6, Neut # (Auto) 8.8 H, Lymph # (Auto) 2.4, [place] # (Auto) 0.9, Eos # (Auto) 0.2, Baso # (Auto) 0.1, D-Dimer 6.06 H, Sodium 138, Potassium 4.4, Chloride 105, Carbon Dioxide 22, Anion Gap 15.4 H, BUN 12, Creatinine 0.90, Estimated Creat Clear 94, Estimated GFR 65, Est GFR ( Amer) 78, Glucose 163 H, Calcium 9.2, Magnesium 1.9, Total Bilirubin 0.9, AST 46 H, ALT 23, Alkaline Phosphatase 77, Troponin I < 0.01, NT-Pro-B Natriuret Pep 34.7, Total Protein 8.0, Albumin 4.7, Globulin 3.3 H, Albumin/Globulin Ratio 1.4, Lipase 131, TSH 0.79, Free T4 1.04 09/04/25 14:20: SARS-CoV-2 (PCR) Not detected, Influenza A Untype (PCR) Not detected, Influenza Type B (PCR) Not detected 09/04/25 14:22: Urine Color Yellow, Urine Appearance Clear, Urine pH 5.5, Ur Specific [place] 1.015, Urine Protein Negative, Urine Glucose (UA) 3+, Urine Ketones Negative, Urine Blood Trace-i, Urine Nitrate Negative, Urine Bilirubin Negative, Urine Urobilinogen 0.2, Ur Leukocyte Esterase Negative, Urine RBC Occasional, Urine WBC None, Ur Squamous Epith Cells 3-5, Urine Bacteria Trace 09/04/25 14:55: Lactate 1.7 09/04/25 17:17: Troponin I < 0.01 Orders (Tests/Meds): ED MEDICATIONS Discontinued Medications Generic Name Dose Route Start Last Admin Trade Name Estevanq PRN Reason Stop Dose Admin Acetaminophen 1,000 mg 09/04/25 16:22 09/04/25 16:26 Acetaminophen 500mg Tab PO 09/04/25 16:23 1,000 mg ONCE ONE Administration Aspirin 162 mg 09/04/25 14:08 09/04/25 14:43 Aspirin 81mg Chewable Tablet PO 09/04/25 14:09 162 mg ONCE ONE Administration Sodium Chloride 1,000 mls @ 999 mls/hr 09/04/25 15:39 09/04/25 16:44 Sod Chlor 0.9% 1000ml Bag IV 09/04/25 16:39 Infused .Q1H1M ONE Infusion Iopamidol 80 ml 09/04/25 15:25 09/04/25 15:25 Iopamidol-370 (76%);100ml Bottle IV 09/04/25 15:26 80 ml ONCE ONE Administration Sodium Chloride 50 ml 09/04/25 15:25 09/04/25 15:25 0.9 % Sodium Chloride 50 Ml Vial IV 09/04/25 15:26 50 ml ONCE ONE Administration Sodium Chloride 10 ml 09/04/25 15:25 09/04/25 15:25 Sodium Chloride 0.9% 10ml Syr (Rad Only) IV 09/04/25 15:26 10 ml ONCE ONE Administration ORDERS Category Date Time Status CTA Chest [CT angio chest PE protocol] Stat Cat Scan 09/04/25 15:06 Completed XR chest portable Stat Exams 09/04/25 14:09 Completed Complete Blood Count Auto Diff Stat Lab 09/04/25 14:15 Completed Comprehensive Metabolic Panel Stat Lab 09/04/25 14:15 Completed D-Dimer Stat Lab 09/04/25 14:15 Completed Free T4 (Free Thyroxine) Stat Lab 09/04/25 14:15 Completed Lactic Acid Stat Lab 09/04/25 14:55 Completed Lipase Stat Lab 09/04/25 14:15 Completed Magnesium Stat Lab 09/04/25 14:15 Completed NT Pro Brain Natriuretic Pep. Stat Lab 09/04/25 14:15 Completed Rapid PCR Covid and Flu A/B Stat Lab 09/04/25 14:20 Completed TSH [Thyroid Stimulating Hormone] Stat Lab 09/04/25 14:15 Completed Troponin I Q3H Lab 09/04/25 17:17 Completed Troponin I Q3H Lab 09/04/25 20:15 Ordered Troponin I Stat Lab 09/04/25 14:15 Completed Urinalysis and Microscopic Stat Lab 09/04/25 14:22 Completed ECG Data Tracing #1: Independently interpreted by me rate is 110, rhythm is regular, axis is rightward deviated, left bundle branch block negative Sgarbossa criteria QTc 419 Medical Decision Narrative: Initial impression of presenting illness: 55-year-old female presents to the emergency department via EMS with complaints of generalized weakness, mild chest pain, racing heart rate since waking this morning. She states she has had mild nausea but denies vomiting, diarrhea, fevers, shortness of breath. She has not had any aspirin prior to arrival. She reports she did use an albuterol neb this morning. Differential diagnosis includes but is not limited to: ACS, heart failure, PE, pneumonia, viral illness, electrolyte abnormality, cardiac arrhythmia Patient arrives hemodynamically stable, afebrile, without respiratory distress with vital signs interpreted by myself. Initial physical exam general: Awake, aware, in no acute distress Initial diagnostic plan: Heart failure workup including D-dimer, COVID and flu swabs, urinalysis. Will give patient 162 mg of aspirin. Results from initial plan were reviewed and interpreted by myself, pertinent positives include: D-dimer 6.06, white blood cell count 12.5. Rest of laboratory studies were nonactionable. Chest x-ray was unremarkable for acute findings. Patient's elevated D-dimer CTA of chest was ordered that was unremarkable. Interventions in the ED: Patient was given 162 mg aspirin per ACS protocol as well as a normal saline bolus for hydration. Patient arrived tachypneic, tachycardic with an elevated white blood cell count however no infectious process was identified. Did not want to give patient sepsis bolus or antibiotics as did not feel that sepsis was a likely diagnosis and no infectious process was identified. Patient was made aware of the results and the findings, upon reevaluation patient has remained stable throughout stay, symptoms have improved. Upon reevaluation patient is no longer tachypneic or tachycardic. She is resting comfortably in bed with no signs of acute distress. Disposition: Reviewed finding today's workup with patient informed no acute abnormalities were noted. Recommend that she continue taking all previously prescribed medications. I also recommended that she reach out to her avionics supervisor to schedule close outpatient follow-up. Instructed her to return to the emergency department with any new or worsening symptoms. Patient was agreeable to plan of care. Patient made aware of findings and had a detailed discussion with symptomatic care and return precautions, patient voiced understanding. Papito Fine MD: I was consulted by the FREDA, and we discussed the complexity of the problems being addressed. I approved the treatment and management plan for this patient's care in the emergency department, thus performing a substantive portion of the medical decision making. Critical Care <Deandra Sandhu - Last Filed: 09/04/25 18:32> Critical Care Time Critical Care Time: No
--- NOTE | 2025-09-04 14:05 | ECG_ITS ---
APPROVED REPORT Exam: Resting ECG HR:110 bpm ECG Measurements Heart Rate 110 AXES VA 177 P 81 QRSd 124 QRS 124 QT 354 T -12 QTc 419 Conclusion SINUS TACHYCARDIA POSSIBLE RIGHT VENTRICULAR HYPERTROPHY [SOME/ALL OF: PROMINENT R IN V1, LATE TRANSITION, RAD, RK, SSS] SEPTAL MYOCARDIAL INFARCTION , OF INDETERMINATE AGE [40+ ms Q WAVE IN V1/V2] MODERATE T-WAVE ABNORMALITY, CONSIDER LATERAL ISCHEMIA [-0.1+ mV T-WAVE IN I/aVL/V5/V6] ABNORMAL ECG Left bundle branch block negative Sgarbossa Electronically signed by : DEV MOSS, 09/04/2025 21:53:34
--- NOTE | 2025-09-04 14:09 | XR_ITS ---
FINAL REPORT TECHNIQUE: Single view chest CLINICAL HISTORY: tachycardia FINDINGS: A single view of the chest was obtained. The heart and mediastinum are within normal limits. The lungs are clear. There is no pneumothorax. IMPRESSION: No acute cardiopulmonary process. Reviewed, Interpreted and Dictated by Keiko Way MD Transcribed by Rachael Gong Authenticated and [facility][1]
--- OUTSIDE RECORDS SUMMARY | 2025-09-04 14:10 | XMS_ITS | Clinical Summary ---
[facility] Organization [facility] Address [address] [place] [phone] Phone Care Team Providers Care Director Of Billing Name Role Phone Melissa NUNEZ, Lida Primary Care Physician [ ] Conditions or Problems Problem Name Problem Code Onset Date Status Entry Date Provider Comment Standard Description Annotate PERIAPICAL ABSCESS WITHOUT SINUS 874916722 (SNOMED CT) 11/30 Inactive 11/30 Sterling Vasquez DMD Periapical abscess without sinus tract Body mass index (BMI) 38.0-38.9; adult Z68.38 (ICD-10-CM ) Active Silke Palomo APRN Body mass index [BMI] 38.0-38.9, adult Body mass index (BMI) 38.0-38.9; adult Z68.38 (ICD-10-CM ) 05/21 Correction 05/21 Silke Palomo APRN Body mass index [BMI] 38.0-38.9, adult Upper respiratory infection, acute 94554310 (SNOMED CT) Inactive Silke Palomo APRN Acute upper respiratory infection Chest pain 81974134 (SNOMED CT) 05/21 Active 05/21 Radha Brueggemann [employer] Chest pain Body mass index (BMI) 38.0-38.9; adult Z68.38 (ICD-10-CM ) 05/21 Removed 05/21 Radha Brueggemann [employer] Body mass index [BMI] 38.0-38.9, adult Body mass index (BMI) 38.0-38.9; adult Z68.38 (ICD-10-CM ) 03/23 Correction 03/23 Radha Brueggemann [employer] Body mass index [BMI] 38.0-38.9, adult Body mass index (BMI) 38.0-38.9; adult Z68.38 (ICD-10-CM ) 03/23 Removed 03/23 Lida Torres MD Body mass index [BMI] 38.0-38.9, adult Body mass index (BMI) 39.0-39.9; adult Z68.39 (ICD-10-CM ) 12/18 Correction 12/18 Lida Torres MD Body mass index [BMI] 39.0-39.9, adult Body mass index (BMI) 39.0-39.9; adult Z68.39 (ICD-10-CM ) 12/18 Removed 12/18 Radha Brupanda SNOWN Body mass index [BMI] 39.0-39.9, adult Postconcuss ion syndrome 21964729 (SNOMED CT) 12/18 Active 12/18 Radha Brupanda [employer] Postconcussion syndrome Body mass index (BMI) 39.0-39.9; adult Z68.39 (ICD-10-CM ) 11/30 Correction 11/30 Radha Brupanda [employer] Body mass index [BMI] 39.0-39.9, adult SINUSITIS ACUTE 34804764 (SNOMED CT) 05/16 Inactive 05/16 Radha Brupanda [employer] Acute sinusitis Body mass index (BMI) 39.0-39.9; adult Z68.39 (ICD-10-CM ) 11/30 Removed 11/30 Lida Torres MD Body mass index [BMI] 39.0-39.9, adult Nasopharyng itis, acute 62637173 (SNOMED CT) 09/26 Inactive 09/26 Silke Palomo [employer] Common cold Prediabetes 6030647 (SNOMED CT) Active Sydni Hayes [employer] Impaired glucose tolerance Coronary artery disease, S/P PTCA/stent 51873563 (SNOMED CT) 03/19 Active 03/19 Sydniisabel Hayes [employer] Coronary arterioscleros is Hearing loss, bilateral 85061734 (SNOMED CT) 03/02 Active 03/02 Sydni Abigail [employer] Bilateral hearing loss Sciatica, right 95652741 (SNOMED CT) 03/02 Active 03/02 Sydni Ada [employer] Sciatica Eustachian tube disorder 95127629 (SNOMED CT) 01/12 Active 01/12 Silke Palomo [employer] Eustachian tube disorder Allergic rhinitis 54130285 (SNOMED CT) 12/17 Active 12/21 Sydni Ada [employer] Allergic rhinitis Vitamin D deficiency 41799083 (SNOMED CT) 12/21 Active 12/21 Sydni Ada [employer] Vitamin D deficiency Fatigue 63557554 (SNOMED CT) 12/17 Inactive 12/17 Sydni Ada [employer] Fatigue Bronchitis, acute, w or w/o bronchospas m 56873079 (SNOMED CT) 12/01 Inactive 12/01 Silke Palomo [employer] Acute bronchitis Dysuria 03138079 (SNOMED CT) 09/28 Active 09/28 Sari Álvarez MD Dysuria Depression 58240346 (SNOMED CT) 09/16 Active 09/16 Tamikadick Keller [employer] Depressive disorder Anxiety Disorder 428782182 (SNOMED CT) 09/16 Active 09/16 Tamika Tanya Keller [employer] Anxiety disorder FIBROMYALGI A 33259790 (SNOMED CT) 10/10 Active 10/10 Sari Álvarez MD Fibromyositis Sinusitis, acute 15468927 (SNOMED CT) 09/14 Resolved 09/14 Sari Álvarez MD Acute sinusitis NEED PROPHYLACTI C VACCINATION &INOCULATIO N FLU Z23 (ICD-10-CM ) 09/22 Resolved 09/22 Sari Álvarez MD Encounter for immunization [employer] CHAIR EXAM 62566760 (SNOMED CT) 04/02 Resolved 04/02 Sari Álvarez MD Gynecologic examination DENTAL PAIN 063853169 (SNOMED CT) 10/09 Inactive 10/09 Mika Mckee DMD Disorder of teeth AND/OR supporting structures Sinusitis, acute 03453007 (SNOMED CT) 09/14 Removed 09/14 Nikos Godoy MD Acute sinusitis NEED PROPHYLACTI C VACCINATION &INOCULATIO N FLU Z23 (ICD-10-CM ) 09/22 Removed 09/22 Nesha Jaramillo LPN Encounter for immunization IBS 81153704 (SNOMED CT) 09/22 Active 09/22 Nesha Jaramillo LPN Irritable bowel syndrome [employer] CHAIR EXAM 07594560 (SNOMED CT) 04/02 Removed 04/02 Sterling Campbell MD Gynecologic examination BACK PAIN LUMBAR CHRONIC M54.5 (ICD-10-CM ) 03/19 Active 03/19 Xochitl Hein MD Low back pain DEPRESSION 35662006 (SNOMED CT) 03/19 Active 03/19 Xochitl Heni MD Depressive disorder HYPERLIPIDE OLIVIA 30609326 (SNOMED CT) 05/16 Active 05/16 Xochitl Hein MD Hyperlipidemia ASTHMA 635700349 (SNOMED CT) 05/16 Active 05/16 Xochitl Hein MD Asthma HYPERTENSIO N 12425846 (SNOMED CT) 05/16 Active 05/16 Xochitl Hein MD Hypertensive disorder SINUSITIS ACUTE 14182641 (SNOMED CT) 05/16 Inactive 05/16 Xochitl Hein MD Acute sinusitis Medications Medication Instructions Start Date Stop Date Generic Name ND Provider CLINDAMYCIN HCL 150 MG CAPS TAKE 2 CAPSULES EVERY 6 HOURS 12/05 CLINDAMYCIN HCL 64565453014 Sterling Vasquez DMD PRAVASTATIN SODIUM 20 MG TABS TAKE 1 TABLET BY MOUTH AT BEDTIME FOR CHOLESTEROL PRAVASTATIN SODIUM 81342261419 Silke Palomo APRN ASPIR-LOW 81 MG ORAL TABLET DELAYED RELEASE TAKE 1 TABLET BY MOUTH 1 TIME A DAY ASPIRIN 61151635595 Silke Palomo APRN MUCINEX 600 MG [id number] 1 TABLET BY MOUTH TWICE A DAY GUAIFENESIN 94462218548 Silke Palomo [employer] BENTYL 20 MG ORAL TABLET 1 BY MOUTH EVERY 6 HRS NEEDED 03/23 DICYCLOMINE HCL 78708266447 Lida Torres MD VITAMIN D3 50 MCG (1999 UT) CAPS TAKE 1 CAPSULE BY MOUTH EACH DAY 03/23 CHOLECALCIFEROL 31991895265 Lida Torres MD PLAVIX 75 MG TABS TAKE 1 TABLET BY MOUTH ONCE A DAY 03/23 CLOPIDOGREL BISULFATE 01225640388 Lida Torres MD NITROSTAT 0.[address] 1 UNDER THE TONGUE AT ONSET OF CHEST PAIN AND MAY REPEAT EVERY 5 MINUTES IF NEEDED FOR CHEST PAIN. IF CHEST PAIN NOT RELIEVED AFTER 3 TABLETS CALL 911. 03/23 NITROGLYCERIN 21064062770 Lida Torres MD ASPIR-LOW 81 MG ORAL TABLET DELAYED RELEASE TAKE 1 TABLET BY MOUTH 1 TIME A DAY 03/23 ASPIRIN 80418190583 Lida Torres MD CLOPIDOGREL BISULFATE 75 MG TABS TAKE 1 TABLET BY MOUTH ONCE A DAY 03/23 CLOPIDOGREL BISULFATE 13665462781 Lida Torres MD ASPIR-LOW 81 MG ORAL TABLET DELAYED RELEASE TAKE 1 TABLET BY MOUTH 1 TIME A DAY ASPIRIN 61815551360 Tuan Quintanilla APRN PRAVASTATIN SODIUM 20 MG TABS TAKE 1 TABLET BY MOUTH AT BEDTIME FOR CHOLESTEROL PRAVASTATIN SODIUM 03630930327 Tuan Quintanilla APRN ASPIR-LOW 81 MG ORAL TABLET DELAYED RELEASE TAKE 1 TABLET BY MOUTH 1 TIME A DAY ASPIRIN 38299286729 Tuan Quintanilla APRN AMOXICILLIN 875 MG TABS TAKE 1 TABLET BY MOUTH 2 TIMES A DAY 12/28 AMOXICILLIN 48377272184 Radha Mcdermott APRN VENLAFAXINE HCL ER 75 MG [id number] TAKE 1 CAPSULE BY MOUTH ONCE A DAY VENLAFAXINE HCL 78131762912 Lida Torres MD LOPRESSOR 60 MG 1 TABLET 2 X A DAY 2017/0 11/30 LOPRESSOR 60 MG Lida Torres MD PRAVASTATIN SODIUM 20 MG TABS TAKE 1 TABLET BY MOUTH AT BEDTIME FOR CHOLESTEROL PRAVASTATIN SODIUM 18422941917 Lida Torres MD CLOPIDOGREL BISULFATE 75 MG TABS TAKE 1 TABLET BY MOUTH ONCE A DAY CLOPIDOGREL BISULFATE 37860974449 Lida Torres MD ASPIR-LOW 81 MG ORAL TABLET DELAYED RELEASE TAKE 1 TABLET BY MOUTH 1 TIME A DAY ASPIRIN 65175575669 Lida Torres MD METOPROLOL TARTRATE 25 MG TABS TAKE 1 TABLET BY MOUTH 2 TIME A DAY METOPROLOL TARTRATE 90119473955 Lida Torres MD VITAMIN D (ERGOCALCIFEROL) 1.25 MG (63793 UT) CAPS TAKE 1 CAPSULE BY MOUTH 2 TIMES PER WEEK FOR 2 MONTHS ERGOCALCIFEROL 18444314149 Sydni Hayes APRN ROBAXIN-750 750 MG ORAL TABLET Take 1 tablet every 8 hours as needed for back pain METHOCARBAMOL 84106394740 Lida Torres MD NITROSTAT 0.[address] 1 UNDER THE TONGUE AT ONSET OF CHEST PAIN AND MAY REPEAT EVERY 5 MINUTES IF NEEDED FOR CHEST PAIN. IF CHEST PAIN NOT RELIEVED AFTER 3 TABLETS CALL 911. NITROGLYCERIN 11056299511 Sydni Hayes APRN CITALOPRAM HYDROBROMIDE 20 MG TABS TAKE 1 TABLET BY MOUTH 1 TIME A DAY CITALOPRAM HYDROBROMIDE 84894696200 Sydni Hayes APRN VENLAFAXINE HCL ER 225 MG [id number] Take 1 daily. VENLAFAXINE HCL 92041000489 Sydni Hayes APRN ARNUITY ELLIPTA 100 MCG/ACT AEPB Take 1 inhalation daily, rinse mouth with water after use FLUTICASONE FUROATE 14897209493 Sydni Hayes APRN ASPIR-LOW 81 MG ORAL TABLET DELAYED RELEASE TAKE 1 TABLET BY MOUTH 1 TIME A DAY ASPIRIN 76058386731 Sydni Hayes APRN NITROGLYCERIN 25 MG NEEDED NITROGLYCERIN 25 MG Sydni Hayes APRN PLAVIX 75 MG TABS TAKE 1 TABLET BY MOUTH ONCE A DAY CLOPIDOGREL BISULFATE 03852176379 Sydni Hayes APRN XALATAN 0.005% 1 DROP EACH EYE XALATAN 0.005% Sydni Hayes APRN LOPRESSOR 60 MG 1 TABLET 2 X A DAY LOPRESSOR 60 MG Sydni Hayes APRN OMEPRAZOLE 20 MG CPDR TAKE 1 CAPSULE BY MOUTH ONCE A DAY OMEPRAZOLE 10157980769 Sydni Hayes APRN BRILINTA 90 MG TABS Take 1 tablet by mouth once a day. TICAGRELOR 53493029394 Sydni Hayes APRN BRILINTA 90 MG TABS Take 1 tablet by mouth once a day. TICAGRELOR 02314279805 Sydni Hayes APRN GABAPENTIN 400 MG CAPS TAKE 1 CAPSULE BY MOUTH 3 TIMES A DAY GABAPENTIN 30484829438 Lida Torres MD PREDNISONE 10 MG TABS 6 BY MOUTH TODAY, 5 BY MOUTH DAY #2, 4 BY MOUTH DAY #3, 3 BY MOUTH DAY #4, 2 BY MOUTH DAY #5 AND 1 BY MOUTH DAY #6 03/08 PREDNISONE 54009341635 Sydni Hayes APRN LAMICTAL 100 MG TABS take 1 daily. 03/02 LAMOTRIGINE 61374606377 Sydni Hayes APRN FLUTICASONE PROPIONATE 50 MCG/ACT SUSP USE 2 SPRAYS INTO EACH NOSTRIL ONCE A DAY AT BEDTIME 12/18 FLUTICASONE PROPIONATE 24562536662 Sydni Hayes APRN FLONASE ALLERGY RELIEF 50 MCG/ACT SUSP Use 2 sprays in each nostril daily FLUTICASONE PROPIONATE 39277772831 Sydni Hayes APRN FEXOFENADINE HCL 180 MG TABS TAKE 1 BY MOUTH EACH DAY FEXOFENADINE HCL 80611722998 Lida Torres MD VITAMIN D3 50 MCG (2000 UT) CAPS TAKE 1 CAPSULE BY MOUTH EACH DAY CHOLECALCIFEROL 73604044943 Lida Torres MD FLUTICASONE PROPIONATE 50 MCG/ACT SUSP USE 2 SPRAYS INTO EACH NOSTRIL ONCE A DAY AT BEDTIME FLUTICASONE PROPIONATE 39077754691 Sydni Hayes APRN OMEPRAZOLE 20 MG CPDR TAKE 1 CAPSULE BY MOUTH ONCE A DAY OMEPRAZOLE 53602916915 Sydni Hayes APRN GABAPENTIN 300 MG CAPS TAKE 1 CAPSULE BY MOUTH TWICE A DAY GABAPENTIN 21026898831 Sydni Hayes APRN CETIRIZINE HCL 10 MG TABS TAKE 1 TABLET BY MOUTH EACH DAY NEEDED FOR ALLERGIES CETIRIZINE HCL 68297162535 Sydni Hayes APRN LORATADINE 10 MG TABS one po qd prn allergies 12/17 LORATADINE 25950762087 Sydni Hayes APRN LAMICTAL 25 MG TABS tAKE 1 DAILY FOR 7 DAYS AT BEDTIME THEN TAKE 2 AT BEDTIME. 12/17 LAMOTRIGINE 09744845558 Sydni Hayes APRN VITAMIN D3 10 MCG (400 UNIT) TABS TAKE 1 TABLET BY MOUTH EVERYDAY 12/17 CHOLECALCIFEROL 00653565612 Sydni Hayes APRN MUCINEX 600 MG [id number] TAKE ONE TABLET TWICE A DAY 12/06 GUAIFENESIN 00417037886 Silke Palomo [employer] VENLAFAXINE HCL ER 225 MG [id number] 1 TAB DAILY 10/26 VENLAFAXINE HCL 10764474272 Tamika Martínez [place] [employer] LAMICTAL 100 MG TABS take 1 daily. LAMOTRIGINE 69346468791 Tamika Martínez [place] [employer] VENLAFAXINE HCL ER 225 MG [id number] Take 1 daily. VENLAFAXINE HCL 62814893685 Tamika Martínez Krishna [employer] OMEPRAZOLE 40 MG CPDR 1 tablet daily OMEPRAZOLE 54216201275 Sari Álvarez MD GABAPENTIN 300 MG CAPS 1 at bedtime GABAPENTIN 78441618257 Sari Álvarez MD LAMICTAL 25 MG TABS tAKE 1 DAILY FOR 7 DAYS AT BEDTIME THEN TAKE 2 AT BEDTIME. LAMOTRIGINE 95110681660 Tamika Keller [employer] GABAPENTIN 600 MG TABS 1 at bedtime GABAPENTIN 23355060474 Sari Álvarez MD FENOFIBRATE 145 MG TABS 1 tablet daily FENOFIBRATE 25201655014 Radha Baldemar [employer]ESSIONAL [employer] CORTISPORIN 3.5-17174-7 OTIC SOLUTION 4 drops in affected ear 3 times daily NEEDED 02/28 NEOMYCIN-POLYMYXI N-HC 90128048697 Sari Álvarez MD BACLOFEN 10 MG TABS 1 TAB 3 TIMES DAILY as needed for muscle cramps BACLOFEN 14711407494 Sydni Hayes [employer] GABAPENTIN 300 MG CAPS 1 at bedtimefor a week then twice daily GABAPENTIN 11962934954 Sari Álvarez MD FENOFIBRATE 48 MG TABS 1 tablet daily FENOFIBRATE 00131276411 Sari Álvarez MD PRAVASTATIN SODIUM 80 MG TABS 1 daily for cholesterol PRAVASTATIN SODIUM 11478552463 Sari Álvarez MD LORATADINE 10 MG TABS one po qd prn allergies LORATADINE 33537693328 Sari Álvarez MD VENLAFAXINE HCL ER 225 MG [id number] 1 TAB DAILY VENLAFAXINE HCL 90236928973 Sari Álvarez MD CORTISPORIN 3.5-07703-5 OTIC SOLUTION 4 drops in affected ear 3 times daily NEEDED NEOMYCIN-POLYMYXI N-HC 24967189410 Sari Álvarez MD LISINOPRIL-HYDRO CHLOROTHIAZIDE 20-12.5 MG TABS Take 1 tablet by mouth once a day LISINOPRIL-HYDROC HLOROTHIAZIDE 09581051110 Lida Torres MD VENLAFAXINE HCL 75 MG TABS 1 TAB 2 TIMES DAILY VENLAFAXINE HCL 06248028501 Sari Álvarez MD CLINDAMYCIN HCL 150 MG CAPS TAKE 2 CAPSULES EVERY 6 HOURS 10/14 CLINDAMYCIN HCL 54084991001 Mika Mckee DMD PRILOSEC 40 MG ORAL CAPSULE DELAYED RELEASE TAKE 1 BY MOUTH EACH DAY OMEPRAZOLE 29200072559 Sari Álvarez MD CITALOPRAM HYDROBROMIDE 20 MG TABS TAKE 1 TABLET BY MOUTH EVERY MORNING CITALOPRAM HYDROBROMIDE 53450564675 Nikos Godoy MD AMOXICILLIN 875 MG TABS 1 tab by mouth twice daily x 14 days 09/24 AMOXICILLIN 84349711367 Nikos Godoy MD ZYRTEC ALLERGY 10 MG TABS TAKE 1 BY MOUTH EACH DAY 09/14 CETIRIZINE HCL 58442956165 Nikos Godoy MD PRAVASTATIN SODIUM 40 MG TABS TAKE 1 TABLET BY MOUTH EVERY NIGHT AT BEDTIME PRAVASTATIN SODIUM 67247787489 Sari Álvarez MD VENTOLIN HFA 108 (90 Base) MCG/ACT AERS TAKE 2 INHALATIONS 4 TIMES A DAY NEEDED FOR WHEEZING ALBUTEROL SULFATE 73014900635 Sydni Hayes APRN PRILOSEC 40 MG ORAL CAPSULE DELAYED RELEASE TAKE 1 BY MOUTH EACH DAY OMEPRAZOLE 41498590214 Yonathan Olea BENTYL 20 MG ORAL TABLET 1 BY MOUTH EVERY 6 HRS NEEDED DICYCLOMINE HCL 82359736577 Sari Álvarez MD ZYRTEC ALLERGY 10 MG TABS TAKE 1 BY MOUTH EACH DAY CETIRIZINE HCL 22553308002 Xochitl Hein MD FLOVENT HFA 110 MCG/ACT INHALATION AEROSOL TAKE 2 INHALATIONS TWICE A DAY 03/19 FLUTICASONE PROPIONATE HFA 61303584658 Xochitl Hein MD CITALOPRAM HYDROBROMIDE 20 MG TABS TAKE 1 TABLET BY MOUTH EVERY MORNING CITALOPRAM HYDROBROMIDE 03278765560 Yonathan Olea VITAMIN D3 10 MCG (400 UNIT) TABS TAKE 1 TABLET BY MOUTH EVERYDAY CHOLECALCIFEROL 69434347588 Xochitl Hein MD PRAVASTATIN SODIUM 20 MG TABS TAKE 1 TABLET BY MOUTH EVERY NIGHT AT BEDTIME PRAVASTATIN SODIUM 40319161267 Yonathan Robertsries LIPITOR 10 MG TABS TAKE 1 TABLET BY MOUTH EVERY NIGHT ATORVASTATIN CALCIUM 05532636991 Xochitl Hein MD SIMVASTATIN 20 MG TABS TAKE 1 BY MOUTH AT BEDTIME 05/29 SIMVASTATIN 93503145336 Xochitl Hein MD VITAMIN D3 50 MCG (2000 UT) CAPS TAKE 1 BY MOUTH EACH DAY CHOLECALCIFEROL 37817348713 Xochitl Hein MD SIMVASTATIN 20 MG TABS TAKE 1 BY MOUTH AT BEDTIME SIMVASTATIN 37513664546 Xochitl Hein MD AMOXICILLIN 500 MG CAPS TAKE 1 CAPSULE BY MOUTH 3 TIMES A DAY 05/27 AMOXICILLIN 67367288289 Ann Milka Galileo LAGUNAS FLOVENT HFA 110 MCG/ACT INHALATION AEROSOL TAKE 2 INHALATIONS TWICE A DAY FLUTICASONE PROPIONATE HFA 55805961891 Xochitl Hein MD LISINOPRIL-HYDRO CHLOROTHIAZIDE 10-12.5 MG TABS TAKE 1 TABLET BY MOUTH 1 TIME A DAY LISINOPRIL-HYDROC HLOROTHIAZIDE 23866838210 Yonathan Emmie AMOXICILLIN 875 MG TABS TAKE 1 TABLET BY MOUTH 2 TIMES A DAY 05/26 AMOXICILLIN 17794265460 Xochitl Hein MD VENTOLIN HFA 108 (90 Base) MCG/ACT AERS TAKE 2 INHALATIONS 4 TIMES A DAY NEEDED FOR WHEEZING ALBUTEROL SULFATE 58034549143 Xochitl Hein MD Medications Administered No information available. Allergies, Adverse Reactions, Alerts Allergy Name Reaction Description Start Date Severity Statu s Provider PRAVACHOL myalgias Severe Active Sarijanis faria MD ERYTHROMYCIN Critical Active Xochitl lovell MD LEVAQUIN Critical Active Xochitl Rodas i, MD CIPRO Critical Active Xochitl Rodas i, MD Results Date Name Value Unit Range Flag Description Lab Report: LIPID PANEL WITH REFLEX TO DIRECT LDL, COMPREHENSIVE METABOL ... TSHREFLX FT4 2.98 m[iU]/L N TSH (thy roid stimulating hormone) with reflex FT4 Office Visit: annual done GLUCOSE, URN negative Glucose [Mass/volume] in Urine by Test strip BILIRUBIN UR negative Bilirub in.total [Presence] in Urine by Test strip KETONES URN negative Ketones [Mass/volume] in Urine by Test strip BLOOD UR DIP negative blood i n urine (hemoglobin) by dipstick PROTEIN, URN negative protein , urine, semiquantitative (dipstick) NITRITE URN negative Nitrite [Presence] in Urine by Test strip SPEC GR URIN 1.025 Specific gravity of Urine by Test strip PH URINE 6.5 pH of Urine by Test strip UROBILINOGEN 0.2 Urobilin ogen [Presence] in Urine by Test strip WBC DIPSTK U 1+ Leukocyt e esterase [Presence] in Urine by Test strip PREG TST URN negative beta HC G, urine, semiquantitative Lab Report: CHLAMYDIA/N. COURTNEY ORRHOEAE DNA, SDA GC DNA PROBE NOT DETECTED NOT DETECT N Neisseria gonorrhoeae DNA [Presence] in Unspecified specimen by Probe with signal amplification Lab Report: CBC (INCLUDES DI FF/PLT), COMPREHENSIVE METABOLIC PANEL, LIPI ... BASO % MANU 0.4 % N basophils as percent of blood leukocytes, manual count EOS % MANU 3.3 % N eosinophil s as percent of blood leukocytes, manual count MONOCYTE % 4.4 % N Monocytes/ 100 leukocytes in Blood by Automated count LYMPH% P BLD 23.6 % N lymphocy iveth as percent of blood leukocytes PMN % 68.3 % N Neutrophils/1 00 leukocytes in Blood by Automated count ABS BASOS 45 {Cells}/ uL 0-200 N Basophils [#/volume] in Blood ABS EOS 370 {Cells}/ uL 15-500 N Eosinophils [#/volume] in Blood ABS MONOS 493 {Cells}/ uL 200-950 N Monocytes [#/volume] in Blood ABSLYMPHCT 2643 {Cells}/ uL 850-3900 N Lymphocytes [#/volume] in Blood ABS NEUTROPH 7650 CELLS/UL 10*3/uL 5022-3229 N Neutrophils [#/volume] in Blood PLATELETK/UL 314 THOUSAND/UL 10*3/uL 140-400 N platelet count RDW 16.7 % 11.0-15.0 H Erythrocyte distribution width [Ratio] by Automated count OL-MCHC 31.4 g/dL 32.0-36.0 L mean corpus cular hemoglobin concentration, rbc MCH 27.2 pg 27.0-33.0 N MCH [Entiti c mass] by Automated count MCV 86.5 fL 80.0-100. 0 N MCV [Entitic volume] by Automated count HCT 40.0 % 35.0-45.0 N Hematocrit [Volume Fraction] of Blood by Automated count HGB 12.6 g/dL 11.7-15.5 N Hemoglobin [Mass/volume] in Blood RBC M/UL 4.62 MILLION/UL 10*6/uL 3.80-5.10 N red blood count WBC CT BLOOD 11.2 10*3/uL 3.8-10.8 H leukocy te count, blood Lab Report: LIPID PANEL WITH REFLEX TO DIRECT LDL, LIPID PANEL WITH REFL ... BG RANDOM 103 mg/dL 65-99 H Glucose [Mass/volume] in Blood TRIGLYCRDES 135 mg/dL <150 N Triglycer julianne [Mass/volume] in Serum or Plasma - mg/dL Lab Report: VITAMIN B12, TSH W/REFLEX TO FT4, VITAMIN D,25-OH,TOTAL,IA B12 400 pg/mL 200-1100 N Cobalamin (V itamin B12) [Mass/volume] in Serum or Plasma Office Visit: f/u on lower b ack pain rm 9 LDL GOAL <100 mg/dL LDL target l evel Lab Report: LIPID PANEL WITH REFLEX TO DIRECT LDL, LIPID PANEL WITH REFL ... VIT D 25-OH 26 ng/mL 30-100 L 25-Hydrox ycalcifero l [Mass/volume] in Serum or Plasma TSH 2.01 u[iU]/mL N Thyrotropin [Units/volume] in Serum or Plasma HGBA1C 5.7 % OF TOTAL HGB % <5.7 H Hemoglobin A1c/Hemoglobin, total in Blood - % SGPT (ALT) 8 U/L 6-29 N Alanine aminotransferase [Enzymatic activity/volume] in Serum or Plasma SGOT (AST) 11 U/L 10-35 N Aspartate aminotransferase [Enzymatic activity/volume] in Serum or Plasma ALK PHOS 50 U/L 33-115 N Alkaline phosphatase [Enzymatic activity/volume] in Blood BILI TOTAL 0.3 mg/dL 0.2-1.2 N Bilirubin. total [Mass/volume] in Serum or Plasma A/G RATIO 1.5 (calc) 1.0-2.5 N Albumin/ Globulin [Mass Ratio] in Serum or Plasma GLOBULIN TOT 2.9 G/DL (CALC) g/dL 1.9-3.7 N Globulin [Mass/volume] in Serum ALBUMIN EOP 4.4 g/dL 3.6-5.1 N Albumin [Mass/volume] in Serum or Plasma by Electrophoresis PROTEIN, TOT 7.3 g/dL 6.1-8.1 N Protein [Mass/volume] in Serum or Plasma CALCIUM 10.2 mg/dL 8.6-10.2 N Calcium [Moles/volume] in Serum or Plasma CO2 25 mmol/L 20-31 N Carbon dioxid e, total [Moles/volume] in Venous blood CHLORIDE BLD 105 mmol/L 98-110 N chloride , blood POTASSIUM 4.2 mmol/L 3.5-5.3 N Potassium [Moles/volume] in Serum or Plasma SODIUM 140 mmol/L 135-146 N Sodium [Moles/volume] in Serum or Plasma BUN/CREAT NOT APPLICABLE (calc) 6-22 Urea nitrogen/Creatinine [Mass Ratio] in Serum or Plasma EGFR IF AFA 95 mL/min/1 .73m2 >OR = 60 N Glomerular filtration rate/1.73 sq M.predicted among blacks [Volume Rate/Area] in Serum, Plasma or Blood by Creatinine-based formula (MDRD) EGFR 82 mL/min/1 .73m2 >OR = 60 N Glomerular filtration rate/1.73 sq M.predicted [Volume Rate/Area] in Serum, Plasma or Blood by Creatinine-based formula (MDRD) CREATININE 0.84 mg/dL 0.50-1.10 N Creatini ne [Mass/volume] in Serum or Plasma BUN 15 mg/dL 7-25 N Urea nitrogen [Mass/volume] in Serum or Plasma GLUCOSE SER 98 mg/dL 65-99 N Glucose [Mass/volume] in Serum or Plasma NON-HDL CHOL 148 MG/DL (CALC) mg/dL N cholesterol, non-HDL, total CHOL/HDL % 5.1 (calc) < OR = 5.0 H cholesterol/HDL ratio, serum, percent LDL 120 MG/DL (CALC) mg/dL <130 N Cholesterol in L DL [Mass/volume] in Serum or Plasma - mg/dL TRIGLYC TOT 138 mg/dL <150 N Triglycer julianne [Mass/volume] in Serum or Plasma - mg/dL HDL 36 mg/dL >OR = 46 L Cholesterol in HDL [Mass/volume] in Serum or Plasma - mg/dL CHOLESTEROL 184 mg/dL 125-200 N Cholester ol [Mass/volume] in Serum or Plasma - mg/dL Office Visit: cough, congest ed, stuffed & runny nose, RM 2 RAPID STREP negative Streptoc occus pyogenes DNA [Presence] in Throat by BRANT with probe detection Plan of Care Type Date Detail Referral [facility], [address] [place] [address], [place], [place] Referral excluded fr om report: [facility], [address] [place] [address] [place] [address], [id number] Referral [facility], [address] [facility], [place], [address] Referral [facility], [address] [facility], [place], [address] Referral Gastroenterology Referral General Boris Hector, [address] [facility] [address], [place], [address] Referral [facility] Psychiat[facility], [address] [place] [address], [address] Pending order Toradol per 15 m g Pending order Strep Screen 878 80 Pending order CMP Pending order HGBA1c Pending order Lipid Panel Pending order Strep Screen [phone] Pending order CMP Pending order HGBA1c Pending order Lipid Panel Pending order TSH reflex to fr ee T4 Pending order Vitamin D 25 Hyd maria c Pending order Prevnar 13 Intra muscular Suspension Pending order Fluzone Quadriva lent Preservative Free Intramuscular Suspension 0.5 ML Pending order IMADM >18YR IM R OUTE 1ST VAC/TOXOID Pending order IMADM >18YR IM R OUTE EA ADDL VAC/TOXOID Pending order Medication Recon ciliation Pending order Medication Recon ciliation Pending order Medication Recon ciliation Pending order TSH reflex to fr ee T4 Pending order Vitamin D 25 Hyd maria c Pending order B12 Pending order Medication Recon ciliation Pending order Giving encourage ment to exercise Pending order Dietary manageme nt education/guidance/counseling Pending order Lifestyle educat ion regarding diet Pending order Medication Recon ciliation Pending order Medication Recon ciliation Pending order CMP Pending order Lipid Panel Pending order Urine Culture Pending order Fluzone Quadriva lent Preservative Free Intramuscular Suspension 0.5 ML Pending order IMADM >18YR IM R OUTE 1ST VAC/TOXOID Pending order Mammogram Pending order CMP Pending order Lipid Panel Pending order SNOMED-CT: [id number] Current Medications Documented Pending order CMP Pending order Lipid Panel Pending order Fluvirin Preserv ative Free Intramuscular Suspension Pending order Lipid Panel Pending order CBC with diff Pending order CMP Pending order CMP Pending order Lipid Panel Pending order CBC with diff Pending order Flu 3 yrs and ol bailee Pending order IMADM >18YR IM R OUTE 1ST VAC/TOXOID Pending order Urine Dip Auto 8 1003 Pending order Test 8 1025 Pending order Mammogram Pending order GC & Chlamydia Pending order ThinPrep Pap w r eflex HR HPV Pending order Mammogram Pending Order exclud ed from report: Pending order Mammogram Pending order Mammogram Pending Order exclud ed from report: Pending order CBC with diff Pending order CMP Pending order Lipid Panel Pending order TSH reflex to fr ee T4 Pending order Vitamin D 25 Hyd maria c Pending order Hemoglobin A1c 8 3036 Pending order Hemoglobin A1c 8 3036 Pending Order exclud ed from report: Pending order Vitamin D 25 Hyd maria c Pending Order exclud ed from report: Pending order TSH reflex to fr ee T4 Pending Order exclud ed from report: Pending order CBC with diff Pending Order exclud ed from report: Pending order Lipid Panel Pending Order exclud ed from report: Pending order CMP Pending Order exclud ed from report: Patient education Patient Educat ion Given Patient education Medications Patient education Medications Patient education Medications Patient education Patient Educat ion Given Patient education Medications Patient education Medications Patient education Medications Patient education Medications Patient education Medications Patient education Medications Patient education Medications Procedures Code Procedure Name Date Entry Date [facility]-[id number] Medication Reconciliation CPT-3074F Most recent systolic blood pressure <130 mm Hg CPT-3079F Most recent diastoli c blood pressure 80-89 mm Hg CPT-3074F Most recent systolic blood pressure <130 mm Hg CPT-3078F Most recent diastoli c blood pressure <80 mm Hg SCT-[id number] SNOMED-CT: [id number] [id number] Current Medications Documented CPT-J1885 Toradol per 15 mg CPT-3074F Most recent systolic blood pressure <130 mm Hg CPT-3079F Most recent diastoli c blood pressure 80-89 mm Hg SCT-[id number] Medication Reconciliation CPT-3074F Most recent systolic blood pressure <130 mm Hg CPT-3079F Most recent diastoli c blood pressure 80-89 mm Hg SCT-[id number] Giving encouragement to exercise SCT-[id number] SNOMED-CT: [id number] 485173 Current Medications Documented CPT-90669 Strep Screen 61843 5 CPT-3074F Most recent systolic blood pressure <130 mm Hg CPT-3078F Most recent diastoli c blood pressure <80 mm Hg [facility] [place] SCT-[id number] Medication Reconciliation 70815 [facility] # CMP 8 496 [facility] # HGBA1c 12790 [facility] # Lipid Panel 8 SCT-[id number] Medication Reconciliation CPT-89550 Strep Screen 20623 2 SCT-[id number] Medication Reconciliation 03789 [facility] # CMP 4 496 [facility] # HGBA1c 90695 [facility] # Lipid Panel 4 56148 [facility] # TSH reflex to free T4 43032 [facility] # Vitamin D 25 Hydroxy 2 SCT-[id number] Medication Reconciliation CPT-75274 Prevnar 13 Intramuscular Suspension 06/10 CPT-49383 Fluzone Quadrivalent Preservative Free Intramuscular Suspension 0.5 ML CPT-77077 IMADM >18YR IM ROUTE 1ST VAC/TOXOID 06/10 CPT-88623 IMADM >18YR IM ROUTE EA ADDL VAC/TOXOID 2 SCT-[id number] Medication Reconciliation [facility] 2 SCT-[id number] Medication Reconciliation PHY THER [facility] E Azeemwo [facility] [place] SCT-[id number] Medication Reconciliation [place] [place] [facility] [place] [facility] SCT-[id number] Medication Reconciliation 08999 [facility] Test # TSH reflex to free T4 50071 [facility] # Vitamin D 25 Hydroxy 2 927 [facility] # B12 SCT-210917403144531 Medication Reconciliation SCT-498657462 Giving encouragement to exercise SCT-546639280 Dietary management education/guidance/counseling SCT-933858170 Lifestyle education regarding diet 08/25 SCT-700402370998685 Medication Reconciliation PS[facility] 03/31 CPT-07620 Fluzone Quadrivalent Preservative Free Intramuscular Suspension 0.5 ML SCT-[id number] Medication Reconciliation CPT-20089 IMADM >18YR IM ROUTE 1ST VAC/TOXOID 07/29 68699 [facility] # Lipid Panel 4 76880 [facility] # CMP 4 395 [facility] # Urine Culture GASTRO GEN Gastroenterology Referral General Mammo MAINE Mammogram [facility]-[id number] [facility]-CT: [id number] 215628 Current Medications Documented 85926 [facility] # CMP 6 28304 [facility] # Lipid Panel 6 16428 [facility] # Lipid Panel 6 49664 [facility] # CMP 6 CPT-65969 Fluvirin Preservativ e Free Intramuscular Suspension 28774 [facility] # CMP 3 6399 [facility] # CBC with diff 3 32687 [facility] # Lipid Panel 3 CPT-70117 Flu 3 yrs and older CPT-96490 IMADM >18YR IM ROUTE 1ST VAC/TOXOID 07/23 41889 [facility] # CMP 8 12584 [facility] # Lipid Panel 8 6399 [facility] # CBC with diff 8 CPT-01512 Urine Dip Auto 35820 CPT-86285 Test 30916 27433 [facility] # ThinPrep Pap w reflex HR HPV 04/02 48889 [facility] # GC & Chlamydia Mammo Mammogram Mammo MAINE Mammogram CPT-34023 Venipuncture 73243 8 09380 [facility] # Vitamin D 25 Hydroxy 2 77010 [facility] # TSH reflex to free T4 6399 [facility] # CBC with diff 1 96744 [facility] # Lipid Panel 1 14617 [facility] # CMP 1 CPT-27829RV Hemoglobin A1c 37411 Vital Signs Date Name Value Unit Description BMI (Body Mass Index) 38.50 kg/m2 Bod y Mass Index (Ratio) Body Temperature 98.4 [degF] temperat ure E&M Body Temperature 36.89 Treasure temperat ure in centigrade E&M BP Diastolic 80 mm[Hg] blood pressu re, diastolic BP Systolic 116 mm[Hg] blood pressur e, systolic BSA (Body Surface Area) 1.99 b jacinto surface area Heart Rate 65 /min pulse rate Height 61 [in_us] height E&M Height 154.94 cm height in cent imeters E&M Respiratory Rate 18 /min respirat ory rate E&M Weight Measured 92.27 kg weight in kilograms E&M Weight Measured 203.0 [lb_av] weight E& M Weight Measured 203.0 [lb_av] weight E& M Immunizations Vaccine Administration Date Standard Description CVX Co de Dose flu vax#1 141 Unknown fluvirin preservative free intramuscular suspension 48mo+ pfs 0.5ml fluvirin preservative free intramuscular suspension 48mo+ pfs 0.5ml 140 0.5 mL Fluzone Preservative Free Intramuscular Suspension 36mo+ 0.5ml Influenza 140 0.5 mL Fluzone Preservative Free Intramuscular Suspension 36mo+ 0.5ml Fluzone Preservative Free Intramuscular Suspension 36mo+ 0.5ml 88 0.5 mL Prevnar 13 Intramuscular Suspension Prevnar 13 Intramuscular Suspension 133 0.5 ML Advance Directives No information available.
--- OUTSIDE RECORDS SUMMARY | 2025-09-04 14:10 | XMS_ITS | Encounter Summary ---
Author Organization [place] [address] Care Team Providers Care Slug Press Operator Name Role Phone Jose Manuel Mooney MD Unavailable [phone] Reynaldo Cervantes MD Unavailable [phone] Corie Hennessy MD Unavailable [phone] Job Arboleda MD Primary Care Provider [phone] Reason for Visit * Reason Onset Date Comments Medication Refill 07/21/2025 Encounter Details Date Type Department Care Team (Late st Contact Info) Description 07/20/2025 Refill [facility] [address] [place] [address] Job Arboleda MD [address] [place] [address] [place] [address] Medication Refill Social History Tobacco Use Types Packs/Day Years [...] Date Recorded PHQ-2 Total Score 0 07/29/2025 [facility] of Occupat ional Health - Occupational Stress [...] bunny e documented as of this encounter Functional Status * Is the person deaf or does he/she have serious difficulty hearing? Answer Date of Assessment Author No 11/30/2022 10:25 AM EDT Wei Gonzalez MA * Is the person blind or does he/she have serious difficulty seeing even when wearing glasses? Answer Date of Assessment Author No 11/30/2022 10:25 AM EDWei Gonzales MA * Does this person have serious difficulty walking or climbing stairs? Answer Date of Assessment Author No 11/30/2022 10:25 AM EDT Wei Gonzalez MA * Does this person have difficulty dressing or bathing? Answer Date of Assessment Author No 11/30/2022 10:25 AM EDT Wei Gonzalez MA * Because of a physical, mental or emotional condition, does this person have difficulty doing errands alone such as visiting a doctor's office or shopping? Answer Date of Assessment Author No 11/30/2022 10:25 AM EDT Wei Gonzalez MA documented as of this encounter Mental Status * Because of a physical, mental or emotional condition, does this person have serious difficulty concentrating, remembering or making decisions? Answer Entry Date Author No 11/30/2022 10:25 AM EDT Wei Gonzalez MA documented in this encounter Plan of Treatment Upcoming Encounters Date Type Department Care Team (Late st Contact Info) Description 09/09/2025 1:05 PM EST Office Visit [facility] Ophthalmology Cov [address] [facility] [address] [place] [address] Silvino Marcus, OD [address] [place] [address] 11/06/2025 1:50 PM EST Office Visit [facility] [address] [address] Reynaldo Cervantes MD [address] [place] [address] documented as of this encounter Goals Goal Patient Goal Type Associated Problems Recent Progress Patient-Stated? Author Blood Pressure < 140/90 Blood Pressure 130/70(2024 2:53 PM EST) No Alma Delia Manriquez RMA Maintain a healthy diet, exercise regularly and maintain an ideal body weight General No Alma Delia Manriquez, RMA BMI (Calculated) < 30 General 37.8(07/29/20 2:53 PM EST) No Mallory Dickinson APRN A1C < 7.0 General On track( 10:44 AM EDT) Yes Virgen Lincoln RN Will take medications as directed by provider General On track( 10:44 AM EDT) Yes Salazar, Virgen J, RN HEMOGLOBIN A1C < 7 Result Component 6.2( 5 3:15 PM EST) No Mallory Dickinson APRN documented as of this encounter Visit Diagnoses Diagnosis Injury of low back, initial encounter documented in this encounter Care Teams Slug Press Operator Relationship Specialty Start Date End Date oJb Arboleda MD [address] [place] [address] [place] [address] PCP - General Family Medicine 11/23/22 Jose Manuel Mooney MD Physician Internal Medicine-Gastroenterolo gy 04/17/15 Reynaldo Cervantes MD [address] [place] [address] [place] [address] Internal Medicine-Cardiovascular Disease 07/08/16 Corie Hennessy MD [address] [place] [address] Consulting Physician Internal Medicine-Endocrinology, Diabetes & Metabolism 11/25/21 documented as of this encounter
--- OUTSIDE RECORDS SUMMARY | 2025-09-04 14:10 | XMS_ITS | Encounter Summary ---
Author Organization [place] [address] Care Team Providers Care Fbi Field Agent Name Role Phone Jose Manuel Mooney MD Unavailable [phone] Reynaldo Cervantes MD Unavailable [phone] Corie Hennessy MD Unavailable [phone] Apollo Arboleda MD Primary Care Provider [phone] Reason for Visit * Reason Comments Medication Refill Encounter Details Date Type Department Care Team (Late st Contact Info) Description 07/19/2025 Refill [facility] Rayna [address] [place] [address] Apollo Arboleda MD [address] [place] [address] [place] [address] Medication Refill Social History Tobacco Use [...] Answer Date Recorded PHQ-2 Total Score 0 01/16/2024 [facility] of Occupat ional Health - Occupational Stress [...] No 11/30/2022 10:25 AM Wei Tapia MA documented as of this encounter Mental Status * Because of a physical, mental or emotional condition, does this person have serious difficulty concentrating, remembering or making decisions? Answer Entry Date Author No 11/30/2022 10:25 AM Wei Tapia MA documented in this encounter Ordered Prescriptions Prescription Sig Dispense Quantity Refills Last Filled Start Date End Date ONETOUCH ULTRA TEST Misc Strip USE 1 STRIP DAILY 50 Strip 11 07/22/2025 naproxen (NAPROSYN) 500 mg Oral TabletIndications:I njury of low back, initial encounter TAKE 1 TABLET BY MOUTH TWICE A DAY WITH FOOD 60 Tablet 2 07/22/2025 documented in this encounter Plan of Treatment Upcoming Encounters Date Type Department Care Team (Late st Contact Info) Description 09/09/2025 1:05 PM EST Office Visit SE[facility] Ophthalmology Cov [address] [facility] [address] [place] [address] Silvion Marcus, OD [address] [place] [address] 11/06/2025 1:50 PM EST Office Visit [facility] [address] [address] Reynaldo Cervantes MD [address] [place] [address] documented as of this encounter Goals Goal Patient Goal Type Associated Problems Recent Progress Patient-Stated? Author Blood Pressure < 140/90 Blood Pressure 130/70(2024 2:53 PM EST) No Alma Delia Manriquez, RMA Maintain a healthy diet, exercise regularly [...] back, initial encounter documented in this encounter Discontinued Medications Medication Sig Discontinue Reason Start Date End Da te Blood Sugar Diagnostic (ONETOUCH ULTRA TEST) Misc Strip 1 Strip by Misc.(Non-Drug; Combo Route) route daily. 06/26/2024 07/22/2025 naproxen (NAPROSYN) 500 mg Oral TabletIndications:Injury of low back, initial encounter TAKE 1 TABLET BY MOUTH TWICE A DAY WITH FOOD 07/02/2024 07/22/2025 documented as of this encounter Care Teams Fbi Field Agent Relationship Specialty Start Date End Date Apollo Arboleda MD [address] [place] [address] [place] [address] PCP - General Family Medicine 11/23/22 Jose Manuel Mooney MD Physician Internal Medicine-Gastroenterolo gy 04/17/15 Reynaldo Cervantes MD [address] [place] [address] [place] [address] Internal Medicine-Cardiovascular Disease 07/08/16 Corie Hennessy MD [address] [place] [address] Consulting Physician Internal Medicine-Endocrinology, Diabetes & Metabolism 11/25/21 documented as of this encounter
--- OUTSIDE RECORDS SUMMARY | 2025-09-04 14:10 | XMS_ITS | Encounter Summary ---
Author Organization [place] [address] Care Team Providers Care Natural Resources Engineer Name Role Phone Jose Manuel Mooney MD Unavailable [phone] Reynaldo Cervantes MD Unavailable [phone] Corie Hennessy MD Unavailable [phone] Job Arboleda MD Primary Care Provider [phone] Reason for Visit * Reason Comments Medication Refill Encounter Details Date Type Department Care Team (Late st Contact Info) Description 07/06/2025 Refill [facility] Rayna [address] [place] [address] Job Arboleda MD [address] [place] [address] [place] [address] Medication Refill Social History Tobacco Use [...] Date Recorded PHQ-2 Total Score 0 01/16/2024 [facility] [place] of Occupat ional Health - Occupational Stress [...] Refills Last Filled Start Date End Date DULoxetine 40 mg Oral Capsule, Delayed Release(E.C.)Indic ations:Anxiety and depression,Diabeti c peripheral neuropathy (HCC) TAKE 1 CAPSULE BY MOUTH EVERY DAY 90 Capsule 07/08/2025 documented in this encounter Miscellaneous Notes * Telephone Encounter - Rhianna Kingston CPhT - 07/08/2025 2:17 PM EST Duloxetine Refill request deferred to the office: Unsure of prescribing provider. Please confirm/update provider or provider location. documented in this encounter Plan of Treatment Upcoming Encounters Date Type Department Care Team (Late st Contact Info) Description 09/09/2025 1:05 PM EST Office Visit SEP Ophthalmology Cov [address] [facility] [address] [place] [address] Silvino Marcus, OD [address] [place] [address] 11/06/2025 1:50 PM EST Office Visit [facility] [address] [address] Reynaldo Cervantes MD [address] [place] [address] [place] [address] documented as of this encounter Goals Goal Patient Goal Type Associated Problems Recent Progress Patient-Stated? Author Blood Pressure < 140/90 Blood Pressure 130/70(2024 2:53 PM EST) No Alma Delia Manriquez RMA Maintain a healthy diet, exercise regularly and maintain an ideal body weight General No Alma Delia Manriquez RMA BMI (Calculated) < 30 General 37.8(07/29/20 [...] as of this encounter Visit Diagnoses Diagnosis Anxiety and depression Dysthymic disorder Diabetic peripheral neuropathy (HCC) Type II or unspecified type diabetes mellitus with neurological manifestations, not stated as uncontrolled documented in this encounter Discontinued Medications Medication Sig Discontinue Reason Start Date End Da te DULoxetine 40 mg Oral Capsule, Delayed Release(E.C.)Indications :Anxiety and depression,Diabetic peripheral neuropathy (HCC) Take 1 Capsule by mouth daily. 04/02/2025 07/08/2025 documented as of this encounter Care Teams Natural Resources Engineer Relationship Specialty Start Date End Date Job Arboleda MD [address] [place] [address] [place] [address] PCP - General Family Medicine 11/23/22 Jose Manuel Mooney MD Physician Internal Medicine-Gastroenterolo gy 04/17/15 Reynaldo Cervantes MD [address] [place] [address] [place] [address] Internal Medicine-Cardiovascular Disease 07/08/16 Corie Hennessy MD [facility] [place] [address] Consulting Physician Internal Medicine-Endocrinology, Diabetes & Metabolism 11/25/21 documented as of this encounter
--- OUTSIDE RECORDS SUMMARY | 2025-09-04 14:11 | XMS_ITS | Encounter Summary ---
Author Organization [place] [address] Care Team Providers Care Lodge Attendant Name Role Phone Jose Manuel Mooney MD Unavailable [phone] Reynaldo Cervantes MD Unavailable [phone] Corie Hennessy MD Unavailable [phone] Job Arboleda MD Primary Care Provider [phone] Reason for Visit * Reason Comments Medication Refill Encounter Details Date Type Department Care Team (Late st Contact Info) Description 07/29/2025 Refill [facility] Rayna [address] [place] [address] Job Arboleda MD [address] [place] [address] [place] [address] Medication Refill Social History Tobacco Use [...] Date Recorded PHQ-2 Total Score 0 07/29/2025 [facility] of Occupat ional Health - Occupational Stress [...] Refills Last Filled Start Date End Date lisinopriL (PRINIVIL;ZESTRIL) 10 mg Oral TabletIndications: HD (arteriosclerotic heart disease),Type 2 diabetes mellitus with hyperlipidemia (HCC),Essential hypertension TAKE 1 TABLET BY MOUTH EVERY DAY 100 Tablet 1 07/29/2025 documented in this encounter Miscellaneous Notes * Telephone Encounter - Dunia Ladd CPhT - 07/29/2025 4:16 PM EST lisinopril Future Visit: none Last Assessed Visit: 07/29/25 Follow-Up: 07/29/26 This patient requires the following labs/vitals. Routing to the office. Abnormal serum potassium OR potassium not on file within 6 months and Serum creatinine (6 months) documented in this encounter Plan of Treatment Upcoming Encounters Date Type Department Care Team (Late st Contact Info) Description 09/09/2025 1:05 PM EST Office Visit SEP Ophthalmology Cov [address] [facility] [address] [place] [address] Silvino Marcus, OD [address] [place] [address] 11/06/2025 1:50 PM EST Office Visit [facility] [address] [address] Reynaldo Cervantes MD [address] [place] [address] [place] [address] documented as of this encounter Goals [...] as of this encounter Visit Diagnoses Diagnosis ASHD (arteriosclerotic heart disease) Coronary atherosclerosis of unspecified type of vessel, [place] or graft Type 2 diabetes mellitus with hyperlipidemia (HCC) Essential hypertension Unspecified essential hypertension documented in this encounter Discontinued Medications Medication Sig Discontinue Reason Start Date End Da te lisinopriL (PRINIVIL;ZESTRIL) 10 mg Oral TabletIndications:ASHD (arteriosclerotic heart disease),Type 2 diabetes mellitus with hyperlipidemia (HCC),Essential hypertension TAKE 1 TABLET BY MOUTH EVERY DAY 12/31/2024 07/29/2025 documented as of this encounter Care Teams Lodge Attendant Relationship Specialty Start Date End Date Job Arboleda MD [address] [place] [address] [place] [address] PCP - General Family Medicine 11/23/22 Jose Manuel Mooney MD Physician Internal Medicine-Gastroenterolo gy 04/17/15 Reynaldo Cervantes MD [address] [place] [address] [place] [address] Internal Medicine-Cardiovascular Disease 07/08/16 Corie Hennessy MD [address] [place] [address] Consulting Physician Internal Medicine-Endocrinology, Diabetes & Metabolism 11/25/21 documented as of this encounter
--- OUTSIDE RECORDS SUMMARY | 2025-09-04 14:11 | XMS_ITS | Clinical Summary ---
Author Organization [facility] Address [address] [place] [address] Phone Care Team Providers Care Ream Cutter Name Role Phone Jose Manuel Mooney MD Unavailable [phone] Reynaldo Cervantes MD Unavailable [phone] Corie Hennsesy MD Unavailable [phone] Job Arboleda MD Primary Care Provider Allergies Active Allergy Reactions Criticality Noted Date Comments Adhesive Rash Low 02/01/2013 Ciprofloxacin Other (See Comments) Medium 12/11/2009 Effects muscles/muscle strain (pt has fibromyalgia) Erythromycin Nausea Only Low 12/11/2009 Levofloxacin Other (See Comments) Medium 12/11/2009 Effects muscles (pt has fibromyalgia) Medications * This document contains information received from the source organization and may not represent a complete record from that organization. acetaminophen (TYLENOL) 500 mg Oral Tablet Take 1,000 mg by mouth 2 times daily as needed for Pain. Active Blood-Glucose Meter Misc Kit Please dispense what is covered by insurance. 1 Kit 07/13/20 21 Active Lancets Misc Misc Please dispense what is covered by insurance. 100 Each 2 07/13/20 21 Active aspirin 81 mg Oral Tablet, Delayed Release (E.C.)Indications :ST elevation myocardial infarction involving left anterior descending (LAD) coronary artery (HCC),Pure hypercholesterole brian,ASHD (arteriosclerotic heart disease),Essentia l hypertension,Fibr omyalgia,Noncompl iance with medications,Mild intermittent asthma without complication Restart on 09/11/21 1 Tablet 09/07/19 22 Active triamcinolone (KENALOG) 0.1 % Top CreamIndications: Allergic contact dermatitis, unspecified trigger Apply topically 2 times daily. 80 g 2 02/02/20 23 Active fructooligosaccha rides (PREBIOTIC FIBER, FOS,) 2.5 gram Oral Tablet, Chewable Take by mouth. Active diclofenac (VOLTAREN) 1 % Top GelIndications:Ac reno-sparks midline thoracic back pain Apply 2 g topically 4 times daily. 100 g 1 01/16/20 24 Active fluticasone propionate (FLONASE) 50 mcg/actuation Nasl [place], SuspensionIndicat ions:Chronic allergic rhinitis SPRAY 2 SPRAYS BY NASAL ROUTE DAILY 16 mL 2 04/18/20 24 Active Digestive Enzymes Oral Capsule Take by mouth. Active APPLE CIDER VINEGAR ORAL Take by mouth. Active dicyclomine (BENTYL) 20 mg Oral TabletIndications :Abdominal cramps Take 1 Tablet by mouth 3 times daily as needed. 90 Tablet 2 08/06/20 24 Active albuterol (PROVENTIL HFA;VENTOLIN HFA) 90 mcg/actuation Inhl HFA Aerosol InhalerIndication s:Mild intermittent asthma without complication Inhale 2 Puffs into the lungs every 4 hours as needed for Wheezing. 1 Each 2 08/30/20 24 Active KLOR-CON M10 10 mEq Oral Tab Sust.Rel. Particle/CrystalI ndications:[place] lemia TAKE 1 TABLET BY MOUTH EVERY DAY 90 Tablet 3 12/08/19 25 Active olopatadine (PATADAY) 0.2 % Opht DropsIndications: Allergic conjunctivitis of both eyes Place 1 Drop into both eyes daily. 5 mL 3 03/05/20 25 Active empagliflozin (JARDIANCE) 10 mg Oral TabletIndications :Type 2 diabetes mellitus with hyperlipidemia (HCC) TAKE 1 TABLET BY MOUTH EVERY DAY 100 Tablet 1 03/28/20 25 Active latanoprost (XALATAN) 0.005 % Opht DropsIndications: Primary open-angle glaucoma, bilateral, indeterminate stage APPLY 1 DROP TO EYE NIGHTLY. 2.5 mL 3 04/01/20 25 Active hydroCHLOROthiazi de 12.5 mg Oral TabletIndications :Essential hypertension Take 1 Tablet by mouth daily. 90 Tablet 3 04/01/20 25 Active famotidine (PEPCID) 40 mg Oral TabletIndications :Gastroesophageal reflux disease, unspecified whether esophagitis present Take 1 Tablet by mouth 2 times daily. 180 Tablet 3 04/01/20 25 Active ipratropium (ATROVENT) 21 mcg (0.03 %) Nasl [place], Non-AerosolIndica tions:Acute bacterial sinusitis 2 Sprays by Nasal route 3 times daily. 30 mL 2 05/31/20 25 Active metoprolol (LOPRESSOR) 25 mg Oral TabletIndications :ASHD (arteriosclerotic heart disease) TAKE 1 TABLET BY MOUTH TWICE A DAY 200 Tablet 2 06/19/20 25 Active methocarbamoL (ROBAXIN) 500 mg Oral Tablet TAKE 1 TABLET BY MOUTH THREE TIMES A DAY 90 Tablet 2 06/19/20 25 Active ondansetron (ZOFRAN-ODT) 4 mg Oral Tablet, Rapid DissolveIndicatio ns:UTI (urinary tract infection), uncomplicated Dissolve 1 Tablet by mouth every 4 hours as needed for Nausea. 20 Tablet 06/25/20 25 Active fluticasone propionate (FLOVENT HFA) 220 mcg/actuation Inhl HFA Aerosol InhalerIndication s:Mild persistent asthma without complication INHALE 2 PUFFS INTO THE LUNGS TWICE A DAY 12 Each 07/05/20 25 Active DULoxetine 40 mg Oral Capsule, Delayed Release(E.C.)Corrine cations:Anxiety and depression,Diabet ic peripheral neuropathy (HCC) TAKE 1 CAPSULE BY MOUTH EVERY DAY 90 Capsule 07/08/20 25 Active naproxen (NAPROSYN) 500 mg Oral TabletIndications :Injury of low back, initial encounter TAKE 1 TABLET BY MOUTH TWICE A DAY WITH FOOD 60 Tablet 2 07/22/20 25 Active ONETOUCH ULTRA TEST Misc Strip USE 1 STRIP DAILY 50 Strip 11 07/22/20 25 Active lisinopriL (PRINIVIL;ZESTRIL ) 10 mg Oral TabletIndications :ASHD (arteriosclerotic heart disease),Type 2 diabetes mellitus with hyperlipidemia (HCC),Essential hypertension TAKE 1 TABLET BY MOUTH EVERY DAY 100 Tablet 1 07/29/20 25 Active pregabalin (LYRICA) 50 mg Oral CapsuleIndication s:Diabetic peripheral neuropathy (HCC) Take 1 Capsule by mouth 3 times daily. 90 Capsule 2 07/29/20 25 Active cetirizine (ZYRTEC) 10 mg Oral Tablet TAKE 1 TABLET BY MOUTH EVERY DAY 30 Tablet 2 08/05/20 25 Active rosuvastatin (CRESTOR) 40 mg Oral TabletIndications :ASHD (arteriosclerotic heart disease) TAKE 1 TABLET BY MOUTH EVERY DAY AT NIGHT 90 Tablet 2 08/13/20 25 Active metFORMIN (GLUCOPHAGE XR) 500 mg Oral ER 24 hr tabletIndications :Type 2 diabetes mellitus with hyperlipidemia (HCC) Take 1 Tablet by mouth daily (with breakfast). 100 Tablet 1 08/28/20 25 Active LEVOthyroxine (SYNTHROID) 75 mcg Oral TabletIndications :Postsurgical hypothyroidism TAKE 1 TABLET BY MOUTH EVERY DAY 100 Tablet 2 08/28/20 25 Active rosuvastatin (CRESTOR) 40 mg Oral TabletIndications :ASHD (arteriosclerotic heart disease) TAKE 1 TABLET BY MOUTH EVERY DAY AT NIGHT 90 Tablet 2 11/15/19 25 2024 Discontinued metFORMIN (GLUCOPHAGE XR) 500 mg Oral ER 24 hr tabletIndications :Type 2 diabetes mellitus with hyperlipidemia (HCC) TAKE 1 TABLET BY MOUTH EVERY DAY WITH BREAKFAST 100 Tablet 1 02/13/20 25 2024 Discontinued(R eorder) LEVOthyroxine (SYNTHROID) 75 mcg Oral TabletIndications :Postsurgical hypothyroidism TAKE 1 TABLET BY MOUTH EVERY DAY 100 Tablet 05/21/20 25 2024 Discontinued Active Problems Patient Care Coordination No te Formatting of this note migh t be different from the original. David as expected 03/19/2022 [id number] Informed consent signed 08/18/21 Omeprazole 20 mg approved 03/29/2019-03/28/2020 for 30 day supply 04/30/2021 No Show Dickinson X 2 - MyChart and mailed letter AW Problem Noted Date Diagnosed Date Primary open-angle glaucoma, bilateral, indeterm inate stage 03/05/2025 Assessment & Plan (03/05/2025 10:23 AM EDT): Acceptable IOP today. Will continue to monitor with exams and scheduled VF or OCT testing as needed. No change in therapy. Discussed risk of permanent blindness without proper treatment and follow up. Patient expressed understanding. Max IOP 30s, 30s per patient. FH? C/d Large Pachy 587 OD, 591 OS (03/2025) Gonio tbd OCT nfl borderline thin; stable since first exam at [facility] in 2022 -high myope VF: No repeatable defects OU, continue to monitor High myope treatment: latanoprost QHS IOP goal: mid to high teens History: Treated for glaucoma since early , changed from [place] due to insurance Pt reports doing well with latanoprost QHS OU daily- reports being compliant. Overall stable IOP but watch closely as on the edge of target IOP. Could consider vyzulta if falling outside of range. OCT stable for at least 2 years. Continue to monitor with current treatment, no adjustments needed at this time. RTC 6 months comp w/OCT and 24-2 SF VF Allergic conjunctivitis of both eyes 09/03/2024 Assessment & Plan (03/05/2025 10:24 AM EDT): +seasonal allergies Recommended OTC pataday- tried to send in Rx to pharmacy today to see if insurance would help with medication. Assessment & Plan (09/03/2024 4:18 PM EST): +seasonal allergies Recommended OTC pataday Type 2 diabetes mellitus without retinopathy Assessment & Plan (09/03/2024 4:19 PM EST): No retinopathy OU continue to monitor yearly Assessment & Plan (01/27/2023 3:51 PM EDT): Discussed need to continuously control blood sugar and blood pressure. Stressed the importance of continuing to follow the advice of patient's PCP and other providers coordinating care. Patient has no evidence of diabetic retinopathy at this time and will follow up for next diabetic eye exam. Patient was instructed to return immediately with any changes in vision. Refractive error 01/27/2023 Assessment & Plan (01/27/2023 3:54 PM EDT): Large update to spectacle Rx today Pt preferred much less minus today. I demonstrated Rx a few times and she noticed great improvement. Copy of Rx released per pt request. Diabetic peripheral neuropathy 10/07/2022 Assessment & Plan (07/29/2025 3:10 PM EST): Orders: pregabalin (LYRICA) 50 mg Oral Capsule; Take 1 Capsule by mouth 3 times daily. Diabetic neuropathy well-controlled with current dose of Lyrica. No reported side effects of drowsiness or confusion. Assessment & Plan (08/06/2024 4:04 PM EST): Orders: pregabalin (LYRICA) 50 mg Oral Capsule; Take 1 Capsule by mouth 3 times daily. Postsurgical hypothyroidism 09/23/2021 Assessment & Plan (11/08/2023 8:34 AM EST): The patient is euthyroid clinically. The patient is to continue present thyroxine regimen. We will monitor thyroid function closely Assessment & Plan (03/07/2023 10:16 AM EDT): She is to have a thyroid function test done this week. The dose of levothyroxine will be adjusted accordingly. Assessment & Plan (07/12/2022 9:37 AM EST): Thyroxine regimen was adjusted to avoid over replacement. The patient is to have a thyroid function test as well as thyroglobulin measured in 5 weeks. We will adjust accordingly. We will decide on the timing for neck ultrasound as well. Assessment & Plan (11/25/2021 9:34 AM EDT): The nature of thyroid condition as well as different aspects of thyroxine replacement therapy in patients with history of thyroid cancer were discussed with patient and her in detail. The patient was consulted on different measures to facilitate thyroxine absorption. The patient is to take thyroxine on the empty stomach and not to take any supplements within several hours after taking LT4. Will obtain thyroid function test and adjust thyroid regimen if needed. 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 The patient is to have neck ultrasound done prior to his next visit in 6 months Assessment & Plan (03/07/2023 10:16 AM EDT): Neck ultrasound results were reviewed with the patient in detail. It showed no abnormal masses and lymphadenopathy. The patient is to have a thyroglobulin level measured this week. Assessment & Plan (07/12/2022 9:36 AM EST): Physical exam reveals no palpable neck masses, cervical lymphadenopathy. The patient is to have thyroglobulin measurement. She is to have a neck ultrasound done as well Assessment & Plan (11/25/2021 9:36 AM EDT): The patient is considered to be at low risk for recurrence. The pathology report was discussed with the patient in detail. There is no indication for radioactive iodine ablation. We will monitor thyroglobulin and adjust thyroxine regimen if needed. Type 2 diabetes mellitus with hyperlipidemia Assessment & Plan (07/29/2025 3:10 PM EST): Up-to-date on diabetic eye exam and microalbumin screens. Follow-up A1c and adjust diabetic regimen as needed. Orders: TSH REFLEX TO FT4 COMPREHENSIVE METABOLIC PANEL HEMOGLOBIN A1C LIPID PANEL REFLEX Assessment & Plan (01/17/2025 3:22 PM EDT): Due for follow-up A1c today and lipid panel. Will adjust diabetic regiment based on A1c results. Up-to-date on diabetic eye exam. Microalbumin recollected today for screening. Orders: HEMOGLOBIN A1C; Future LIPID PANEL REFLEX; Future BASIC METABOLIC PANEL; Future MICROALBUMIN/CREATININE RATIO URINE; Future Assessment & Plan (08/06/2024 4:04 PM EST): Orders: HEMOGLOBIN A1C; Future LIPID PANEL REFLEX; Future COMPREHENSIVE METABOLIC PANEL; Future TSH REFLEX; Future Follow-up labs per above will adjust diabetic regimen based on A1c results. Well-controlled her home sugar reports Assessment & Plan (06/08/2024 3:45 PM EDT): Orders: MICROALBUMIN/CREATININE RATIO URINE; Future MICROALBUMIN/CREATININE RATIO URINE Microalbumin collected today. Insomnia, persistent 08/13/2020 Chronic midline low back pain without sciatica 0 04/29/2020 Overview (04/29/2020): Lumbar x-ray. voltaren gel TID/PRN to area. Heat/ice as tolerated/needed. Medrol dose pack as directed. Resume gabapentin TID. Paresthesia of both hands 04/29/2020 Overview (04/29/2020): EMG ordered. Try bilateral wrist braces at night. Will consult hand specialist if problem persists or EMG results indicate. Encounter for medication management 04/29/2020 Mixed incontinence 05/18/2019 Gastroesophageal reflux disease without esophagi tis 03/29/2019 Irritable bowel syndrome wit h both constipation and diarrhea 07/11/2018 Anxiety and depression 12/14/2017 Fibromyalgia 07/05/2017 Overview (07/05/2017): [address] elevation myocardial infa rction involving left anterior descending (LAD) coronary artery 03/20/2016 Overview (01/02/2019): AMI March 2016 PTCA and stent x 3 FINDINGS: 12/2018 LM: Long normal LAD: 100% mid at prev stent Ramus: Small 2.5 vessel with ostial 70%Li's CX: Large AVG Cx, patent Mid Stent, focal pre and post stent stenosis 50-60% mild 5% ISR RCA: Dom PDA, mid 50% in the descending limb EF: 60% Normal wall motion EDP 10 PLAN: Occluded LAD stent Normal wall motion Borderline CX dz --will re-evaluate sx as o/p Med mgmt for now with consideration of FFR of Cx if sx persist ASHD (arteriosclerotic heart disease) 03/20/2016 Overview (12/06/2019): Findings: Single Vessel Disease Procedure Description: Percutaneous Coronary Intervention (PCI) PCI Vessel: mid RCA Pre PCI stenosis (%) : 85% hazy Post PCI stenosis (%) : 0% The following equipment was used: Guide catheter: 6 Fr Interventional wire: prowater Stent: Xience drug eluting stent - 3.25 mm x 15 mm and [id number] Final Impression: 1. Coronary artery disease as described above 2. Critical stenosis of the mid RCA 3. Successful PCI of the RCA Plan: 1. Ticagrelor daily for a minimum of 12 months 2. Daily aspirin indefinitely 3. Standard secondary preventative medical therapy (statin, beta cierra, ACEI if needed) January 2019 Result status: Final result Left main trunk normal LAD: 100% mid and a stent. The mid to distal LAD filled via left to left collaterals and [id number] collaterals Ramus. 30-50% proximal Circumflex: 30-50% mid Right coronary artery: Dominant. 70% mid LV: Normal Assessment and plan 1. Totally occluded LAD filling via collaterals 2. Tight right planned PCI AMI March 2016 PTCA and stent x 3 FINDINGS: 12/22 LM: Long normal LAD: 100% mid at prev stent Ramus: Small 2.5 vessel with ostial 70%Li's CX: Large AVG Cx, patent Mid Stent, focal pre and post stent stenosis 50-60% mild 5% ISR RCA: Dom PDA, mid 50% in the descending limb EF: 60% Normal wall motion EDP 10 PLAN: Occluded LAD stent Normal wall motion Borderline CX dz --will re-evaluate sx as o/p Med mgmt for now with consideration of FFR of Cx if sx persist Coronary Angiogram(12/04/19) TO Distal LAD Diagonal 60% diffuse stenosisi Ramus: Lcx : distal 50% RCA: Patent Stent NL EF Mixed hyperlipidemia 03/18/2016 Mild persistent asthma without complication 03/05 Assessment & Plan (09/27/2024 1:58 PM EST): Orders: fluticasone propionate (FLOVENT HFA) 220 mcg/actuation Inhl HFA Aerosol Inhaler; Inhale 2 Puffs into the lungs 2 times daily. Assessment & Plan (08/06/2024 4:04 PM EST): Asthma well-controlled at this time continue current regiment Obesity 01/24/2013 Essential hypertension Assessment & Plan (07/29/2025 3:10 PM EST): Hypertension at goal today continue current regiment Orders: COMPREHENSIVE METABOLIC PANEL Assessment & Plan (04/01/2025 4:21 PM EDT): Hypertension at goal continue current regiment Orders: hydroCHLOROthiazide 12.5 mg Oral Tablet; Take 1 Tablet by mouth daily. Assessment & Plan (08/06/2024 4:04 PM EST): Hypertension at goal today continue current regiment Orders: COMPREHENSIVE METABOLIC PANEL; Future Unstable angina Resolved Problems Problem Noted Date Diagnosed Date Resolved Date Hypokalemia 11/07/2023 08/06/2024 Assessment & Plan (11/08/2023 8:34 AM EST): Stable on potassium supplements Thyroid mass of unclear etiology 08/20/2021 08/06/2024 Overview (08/20/2021): Added automatically from request for surgery [id number] Type 2 diabetes mellitus wit h diabetic chronic kidney disease 07/14/2021 11/30/2022 Type 2 diabetes mellitus wit hout complication, without long-term current use of insulin 06/24/2021 07/14/2021 Assessment & Plan (06/24/2021 5:12 PM EDT): The patient has been reluctant to take Metformin. She wanted to make sure that it was safe medication to try. We discussed different aspects of metformin therapy including the potential benefit versus possible side effects. The patient was highly encouraged to try Metformin as prescribed. She is to follow-up with primary care physician for treatment of diabetes. Solitary thyroid nodule 06/22/2021 07/0 11/2022 Assessment & Plan (07/29/2021 5:00 PM EST): Right thyroid nodule biopsy was suspicious for papillary thyroid cancer. The biopsy results were discussed with the patient in detail. The nature of her condition as well as prognosis were explained to the patient. She will be referred for total thyroidectomy. We discussed different aspects of thyroid surgery as well. It is curative for majority of the patients with localized papillary thyroid cancer. All the questions were answered in detail. The patient was provided with a referral. Assessment & Plan (06/24/2021 5:14 PM EDT): The patient was found to have right thyroid nodule with worrisome ultrasound features such as irregular, lobulated margins as well as hypoechoic appearance, possible microcalcifications. The patient is euthyroid clinically and biochemically. The indications for fine-needle aspiration biopsy to rule out thyroid cancer were presented to the patient and her in detail. We will proceed with arrangements. The recommendations will be made based on the biopsy results. Acute neck pain 04/29/2020 05/19/2021 Overview (04/29/2020): Cervical x-ray. Voltaren gel To area TID/PRN. May utilize heat/ice as needed. Medrol dose pack as directed. Prediabetes 09/19/2019 05/19/2021 Incontinence of feces 05/18/20192023 Anxiety and depression 02/03/201902/23 Coronary artery disease invo lving coronary bypass graft of [place] heart with angina pectoris 12/20/2018 01/02/2019 Overview (02/05/2019): January 2019 Left main trunk normal LAD: 100% mid and a stent. The mid to distal LAD filled via left to left collaterals and [id number] collaterals Ramus. 30-50% proximal Circumflex: 30-50% mid Right coronary artery: Dominant. 70% mid LV: Normal Assessment and plan 1. Totally occluded LAD filling via collaterals 2. Tight right planned PCI 85% mid RCA stenosis, hazy. Culprit of unstable angina symptoms 2 TYESHA placed with great results Final Impression: 1. Coronary artery disease as described above 2. Critical stenosis of the mid RCA 3. Successful PCI of the RCA Plan: 1. Ticagrelor daily for a minimum of 12 months 2. Daily aspirin indefinitely 3. Standard secondary preventative medical therapy (statin, beta cierra, ACEI if needed) FINDINGS: LM: Long normal LAD: 100% mid at prev stent Ramus: Small 2.5 vessel with ostial 70%Li's CX: Large AVG Cx, Widely patent Mid Stent, focal pre and post stent stenosis 20- 30%, mild 5% ISR RCA: Dom PDA, mid 50% in the descending limb EF: 60% Normal wall motion EDP 10 PLAN: Occluded LAD stent Normal wall motion Med mgmt PROCEDURE(S): LHC, Select Coronary Angio, LVG FINDINGS: LM: Long normal LAD: 100% mid at prev stent Ramus: Small 2.5 vessel with ostial 70%Li's CX: Large AVG Cx, patent Mid Stent, focal pre and post stent stenosis 50-60% mild 5% ISR RCA: Dom PDA, mid 50% in the descending limb EF: 60% Normal wall motion EDP 10 PLAN: Occluded LAD stent Normal wall motion Borderline CX dz --will re-evaluate sx as o/p Med mgmt for now with consideration of FFR of Cx if sx persist Impaired glucose tolerance 06/25/2016 0 05/19/2021 Noncompliance with medications 03/21/2016 11/30/2022 Chest pain 03/18/2016 11/30/2022 SOB (shortness of breath) on exertion 03/18/2016 03/20/2016 Suicidal ideation 01/28/2013 07/05/2017 Asthma 05/16/2012 11/30/2022 Unstable angina 03/20/2016 Encounters Date Type Department Care Team Description 08/27/2025 Refill SEP [address] [place] [phone] Job Arboleda MD Medication Refill 08/26/2025 Refill SEP [address] [place] [phone] Job Arboleda MD Medication Refill 08/10/2025 Refill SEP [address] [place] [phone] Reynaldo Cervantes MD Medication Refill 08/04/2025 Refill SEP [address] [place] [phone] Job Arboleda MD Medication Refill 07/30/2025 Results Follow-Up [address], [place] [address] Job Arboleda MD TSH REFLEX TO FT4, COMPREHENSIVE METABOLIC PANEL, HEMOGLOBIN A1C, Additional followed-up results: 2 07/29/2025 3:00 PM EST Office Visit [address] [place] [phone] Job Arboleda MD Annual physical exam (Primary Dx); Essential hypertension; Screening for colon cancer; Type 2 diabetes mellitus with hyperlipidemia (HCC); Diabetic peripheral neuropathy (HCC) 07/29/[address] [place] [phone] Job Arboleda MD Medication Refill 07/20/[address] [place] [phone] Job Arboleda MD Medication Refill 07/19/[address], [place] [address] Job Arboleda MD Medication Refill 07/06/[address] [place] [phone] Job Arboleda MD Medication Refill 07/04/[address] [place] [phone] Job Arboleda MD Medication Refill 06/25/2025 4:00 PM EDT Office Visit [address] [place] [phone] Job Arboleda MD UTI (urinary tract infection), uncomplicated (Primary Dx) 06/18/[address] [place] [address] Job Arboleda MD Medication Refill 06/05/[address] [place] [address] Job Arboleda MD Medication Refill from Last 3 Months Immunizations Immunization Administration Dates Next Due Influenza Patient Reported 06/10/2016,07/23/2013 Influenza Seasonal Injectable 07/23/2013 Influenza Seasonal Injectable PF 025,08/06/2024,07/29/2015,2013 Influenza Vaccine Quadrivalent 07/05/2017 Influenza Vaccine Quadrivalent PF 08/18/2023 Influenza Vaccine, Unspecifi ed Formulation 06/05/2016 Influenza Virus Vaccine Quad rivalant, Flublok 06/08/2022,05/18/2021,12/03/2019 Pneumococcal Conjugate Vacci ne 13 Valent 06/10/2016 Tdap 07/05/2017 Surgical History Surgery Date Site/Laterality Comments HERNIA REPAIR 09/05/1974 - 09/04/1975 PELVIC LAPAROSCOPY 09/05/2006 - 09/04/2007 FINGER SURGERY 09/05/2002 - 09/04/2003 index finger on left hand to repair a nerve CHOLECYSTECTOMY, LAPAROSCOPIC 02/05/2013 Abdomen/N/A Surgeon: Mick Orozco MD; Location: [facility]; Service: COLONOSCOPY 09/05/2014 - 09/04/2015 CORONARY ANGIOPLASTY WITH STENT PLACEMENT 03/17/2016 3 stents CARDIAC CATHETERIZATION CORONARY PERCUTANEOUS INTERVENTION(PCI) 02/04/2019 N/A Surgeon: Matthias Mcintyre MD; Location: [facility]; Service: Cardiac Medical devices from this surgery are in the Medical Devices section. CORONARY ANGIOPLASTY THYROIDECTOMY 09/07/2021 Right total thyroidectomy, selective neck dissection; Surgeon: Kenroy Frausto MD; Location: [facility]; Service: ENT Medical History Medical History Date Comments Fibromyalgia Hypertension Heartburn Pneumonia 2005 Hyperlipidemia Irritable bowel syndrome Ulcer 2002 Depression Headache(784.0) Other specified disorder of kidney and ureter frequency Glaucoma (increased eye pressure) Anxiety and depression Mixed incontinence 05/18/2019 Impaired glucose tolerance 06/25/2016 Type 2 diabetes mellitus wit h diabetic chronic kidney disease (HCC) 07/14/2021 Asthma inhaler Unspecified sleep apnea no machi ne CAD (coronary artery disease) mu ltiple stents ( 5) Arthritis back Thyroid disease cancer Cancer (HCC) thyroid Hyperthyroidism Thyroid cancer (HCC) Solitary thyroid nodule 06/22/2021 Family History Medical History Relation Name Comments Alcohol Abuse Brother 1 Jayson Back Problems Brother 1 Jayson Back Problems Brother 2 Jered Cancer Father Papito lung Depression Father Papito Diabetes Maternal Grandmother Erin Heart Disease Maternal Grandmother Erin Thyroid Disease Maternal Grandmother Erin Depression Mother Erin Diabetes Mother Erin Heart Disease Mother Erin [place] in 50's but at age 76 Stroke Mother Erin Thyroid Disease Mother Erin High Blood Pressure Sister 1 Leif High Cholesterol Sister 1 Leif High Blood Pressure Sister 2 Arlette High Cholesterol Sister 2 Arlette Osteoporosis Sister 2 Arlette Relation Name Status Comments Brother 1 Jayson Alive Brother 2 Jered Alive Father Papito Maternal Grandmother Erin Mother Erin Sister 1 Leif Alive Sister 2 Arlette Alive Social History Tobacco Use Types Packs/Day Years Used Date Smoking Tobacco: Never Passive Smoke Exposure: Never Smokeless Tobacco: Never Tobacco Cessation:Counseling Given: Not Answered Alcohol Use Standard Drinks/Week Comments No 0 [...] Not on file Not on bunny e Obstetrics History Para Term AB IAB SAB Ectopic Multiple Livin g Live Births 1 1 09 05 1 Date Outcome GA Total Labor Labor/2nd/3rd Weight Sex Type Anes PTL Allyson A1 A5 Name Clin 1994 Term M Vag-S pont Living Last Filed Vital Signs Vital Sign Reading [...] Mass Index 37.69 07/29/2025 2:53 PM EST Plan of Treatment Upcoming Encounters Date Type Department Care Team (Late st Contact Info) Description 09/09/2025 1:05 PM EST Office Visit SEP Ophthalmology Cov [address] [facility] [address] [place] [id number] Silvino Mracus, BASHIR [address] [place] [address] 11/06/2025 1:50 PM EST Office Visit GRT H&V [address] [id number] Reynaldo Cervantes MD [address] [place] [address] [place] [address] Health Maintenance Due Date Last Done Comments Hepatitis B Vaccine (1 of 3 - 19+ 3-dose series) 1987 Cologuard 2013 FIT 2013 Sigmoidoscopy 2013 Virtual Colonography 2013 Pneumococcal Vaccine 50+ (1 of 1 - PPSV23, PCV20, or PCV21) 08/05/2016 06/10/2016 Zoster (1 of 2) 2018 COVID-19 Vaccine (1 - season) 2025 Colon Cancer Screening 05/22/2025 Colonoscopy 05/22/2025 05/22/2015 Kidney Health: uACR 01/18/2026 01/18/2025, 06/08/2024, 09/13/2022 Hemoglobin A1c 01/26/2026 07/29/2025, 01/03, 08/20/2024, Additional history exists Annual Wellness Exam 07/29/2026 07/29/2025 Kidney Health: eGFR 07/29/2026 07/29/2025, 01/17/2025, 12/11/2024, Additional history exists Lipids 07/29/2026 07/29/2025, 01/03, 08/20/2024, Additional history exists Diabetic Eye Exam 09/03/2026 09/03/2024, 07/13/2021 Breast Cancer Screening 10/18/2026 10/18/19 25, 01/10/2023, 06/05/2021, Additional history exists Pap Smear 12/07/2026 12/08/2023, 07/09/2017, 12/10/2015 DTaP/TDaP/Td (2 - Td or Tdap) 07/05/2027 07/05/2017 Cervical Cancer Screening 12/07/2028 HPV/Pap Cotest 12/07/2028 12/08/2023 Influenza Vaccine Completed 05/31/2025, , 08/18/2023, Additional history exists Meningococcal B Vaccine Aged Out No l onger eligible based on patient's age to complete this topic Goals Goal Patient Goal Type Associated Problems Recent Progress Patient-Stated? Author Blood Pressure < 140/90 Blood Pressure 130/70(11/24/ 2025 2:53 PM EST) No Declan, Alma Delia L, RMA Maintain a healthy diet, exercise regularly and maintain an ideal body weight General No Alma Delia Manriquez RMA BMI (Calculated) < 30 General 37.8(07/29/20 25 2:53 PM EST) No Mallory Dickinson APRN A1C < 7.0 General On track( 10:44 AM EDT) Yes Virgen Lincoln RN Will take medications as directed by provider General On track( 10:44 AM EDT) Yes Virgen Lincoln RN HEMOGLOBIN A1C < 7 Result Component 6.2( 5 3:15 PM EST) No Mallory Dickinson APRN Medical Devices Implanted Type Area Locomotive Pipe Fitter Device Identifier Shelf Expiration Date Model / Serial / Lot Stent Xience Alpine Drug Eluting 3.0mm X 12mm - [id number] Implanted:Qty : 1 on 03/18/2016 by Jenny Retana MD at [facility] Explanted:at [facility] (Quantity not on file) N/A: Circumflex [facility]:Eferio DEV [id number] / / [id number] Stent Xience Alpine Drug Eluting 2.5mm X 8mm - [id number] Implanted:Qty : 1 on 03/18/2016 by Jenny Retana MD at [facility] Explanted:at [facility] (Quantity not on file) N/A: LAD [facility] [employer]:Eferio DEV [id number] / / [id number] Stent Xience Alpine Drug Eluting 3.0mm X 12mm - [id number] Implanted:Qty : 1 on 03/18/2016 by Jenny Retana MD at [facility] Explanted:at [facility] (Quantity not on file) N/A: LAD [facility] [employer]:etechies.inC DEV [id number] / / [id number] Stent Xience Alpine Drug Eluting 2.25mm X 12mm - [id number] Implanted:Qty : 1 on 03/20/2016 by Juanjo Cid MD at [facility] Explanted:at [facility] (Quantity not on file) N/A: LAD [facility]:VASC DEV [id number] Stent Xience Ade Evrlmus Eluting Coronary 3.25mm X 15mm - [id number] Implanted:Qty : 1 on 02/04/2019 by Matthias Mcintyre MD at [facility] N/A: RCA [facility]:VASC DEV [id number] Stent Xience Ade Evrlmus Eluting Coronary 3.25mm X 12mm - [id number] Implanted:Qty : 1 on 02/04/2019 by Matthias Mcintyre MD at [facility] N/A: RCA [facility] [employer]:VASC DEV [id number] Procedures Procedure Name Priority Date/Time Associated Diagnosis Comments CBC WITH DIFF Routine 07/29/2025 3:15 PM EST Annual physical exam LIPID PANEL REFLEX Routine 07/29/2025 3: 15 PM EST Annual physical exam Type 2 diabetes mellitus with hyperlipidemia (HCC) HEMOGLOBIN A1C Routine 07/29/2025 3:15 PM EST Annual physical exam Type 2 diabetes mellitus with hyperlipidemia (HCC) COMPREHENSIVE METABOLIC PANEL Routine 07/29/2025 3:15 PM EST Annual physical exam Essential hypertension Type 2 diabetes mellitus with hyperlipidemia (HCC) TSH REFLEX TO FT4 Routine 07/29/2025 3:1 5 PM EST Annual physical exam Type 2 diabetes mellitus with hyperlipidemia (HCC) URINE CULTURE (NO STAIN) Routine 06/25/2025 3:59 PM EDT UTI (urinary tract infection), uncomplicated SEP URINALYSIS POC Routine 06/25/2025 3: 57 PM EDT UTI (urinary tract infection), uncomplicated ALBUMIN/CREATININE RATIO, RANDOM URINE Routine 01/18/2025 10:47 AM EDT Type 2 diabetes mellitus with hyperlipidemia (HCC) MM MAMMO DIGITAL NATACHA SCREEN BILAT Routine 10/18/2024 8:48 AM EST Encounter for screening mammogram for breast cancer OPS ANALYST CYTOLOGY REQUEST (PAP ONLY) Routine 12/08/2023 2:16 PM EDT Pap smear for cervical cancer screening GMED COLONOSCOPY Routine 05/22/2015 8:15 AM EDT from Last 3 Months or Most Recently Relevant to Health Maintenance Results * (ABNORMAL) LIPID PANEL REFLEX (07/29/2025 3:15 PM EST) Cholesterol 123 <200 mg/dL 07/29/2025 10:17 PM EST [facility] Comment: < 200 Desirable 200 - 239 Borderline High >= 240 High Triglyceride 142 <150 mg/dL 07/29/2025 10:17 PM EST [facility] Comment: < 150 Normal 150 - 199 Borderline High 200 - 499 High >= 500 Very High HDL 37(L) >=40 mg/dL 07/29/2025 10:17 PM EST [facility] Comment: > 60 Optimal 40 - 60 Acceptable < 40 Low LDL Calculated 61 <100 mg/dL 07/29/2025 10:17 PM EST [facility] Comment: < 100 Optimal 100 - 129 Near or above optimal 130 - 159 Borderline High 160 - 189 High >= 190 Very High The National Institutes of Health (NIH) equation is used for all lipid panels that report calculated LDL (LDL-C). Non-HDL-C Calculated 86 <=129 mg/dL 07/29/2025 10:17 PM EST [facility] Comment: <130 Desirable 130-159 Above Desirable 160-189 Borderline High 190-219 High >= 220 Very High Fasting Specimen? No None 025 10:17 PM EST [facility] Blood VENOUS BLOOD / Unknown Venipuncture / Unknown 07/29/2025 3:15 PM EST 07/29/2025 3:15 PM EST us oJb Arboleda MD CHEMISTRY ORDERABLES Final Res ult Performing Organization Address [facility]/ZIP Co de Phone Number [facility], [facility] [address] , [place] [address] * TSH REFLEX TO FT4 (07/29/2025 3:15 PM EST) Pathologist [facility] TSH Reflex 1.180 0.270 - 4.200 mcIU/mL 07/29/2025 10:17 PM EST [facility], [facility] Blood VENOUS BLOOD / Unknown Venipuncture / Unknown 07/29/2025 3:15 PM EST 07/29/2025 3:15 PM EST Narrative [facility] - 07/29/2025 10:17 PM EST Ingestion of joel doses of biotin (>5 mg/day) taken within 8 hours of drawing blood sample can interfere with this immunoassay test. Job Arboleda MD CHEMISTRY ORDERABLES Final Res ult Performing Organization Address [facility] Co de Phone Number [facility], [facility] [address] , [place] [address] * (ABNORMAL) CBC WITH DIFF (07/29/2025 3:15 PM EST) Pathologist [facility] WBC 9.7 3.7 - 10.3 x10(3)/mcL 07/29/2025 [...] 07/29/2025 9:27 PM EST [facility], [facility] Platelet 334 155 - 369 x10(3)/mcL 07/29/2025 9:27 PM EST [facility] MPV 10.9 8.8 - 12.5 fL 07/29/2025 9:27 PM EST [facility] Neut Percent 60.2 % 07/29/2025 9:27 PM EST [facility] Comment:Neutrophils equals s egs plus bands Imm Gran% 0.3 % 07/29/2025 9:27 PM EST [facility] Comment:Automated count of m etamyelocytes, myelocytes and promyelocytes. Lymph Percent 27.6 % 07/29/2025 9:27 PM EST [facility] [place] Percent 8.0 % 07/29/2025 9:27 PM EST [facility] Eos Percent 3.3 % 07/29/2025 9:27 PM EST [facility] Baso Percent 0.6 % 07/29/2025 9:27 PM EST [facility] Neut # 5.8 1.6 - 6.1 x10(3)/mcL 07/29/2025 9:27 PM EST [facility] Comment:Neutrophils equals s egs plus bands IMMGRAN# 0.0 0.0 - 0.1 x10(3)/mcL 07/29/2025 9:27 PM EST [facility] Comment:Automated count of m etamyelocytes, myelocytes and promyelocytes. An absolute IG <0.1 is reported as 0.0. Lymph # 2.7 1.2 - 3.9 x10(3)/mcL 07/29/2025 9:27 PM EST [facility] [place] # 0.8 0.3 - 0.9 x10(3)/mcL 07/29/2025 9:27 PM EST [facility] Eos# 0.3 0.0 - 0.5 x10(3)/mcL 07/29/2025 9:27 PM EST [facility] Baso # 0.1 0.0 - 0.1 x10(3)/mcL 07/29/2025 9:27 PM EST [facility] [employer] Blood VENOUS BLOOD / Unknown Venipuncture / Unknown 07/29/2025 3:15 PM EST 07/29/2025 3:15 PM EST Job Arboleda MD HEMATOLOGY ORDERABLES Final Re sult Performing Organization Address [facility] de Phone Number [facility] [employer] [address] , [place] [address] * (ABNORMAL) HEMOGLOBIN A1C (07/29/2025 3:15 PM EST) Hgb A1C 6.2(H) 4.2 - 5.6 % 07/29/2025 10:01 PM EST [facility] [employer] Est. Avg Glucose 131 mg/dL 07/29/2025 10:01 PM EST [facility] Blood VENOUS BLOOD / Unknown Venipuncture / Unknown 07/29/2025 3:15 PM EST 07/29/2025 3:15 PM EST Narrative [facility] - 07/29/2025 10:01 PM EST REFERENCE RANGE: Normal: 4.0-5.6% Pre-diabetes: 5.7-6.4% Provisional diagnosis of diabetes: >6.4% Hgb F>10% and anything which shortens red cell survival, such as hemolytic anemia, or unstable hemoglobin variants such as HbSS, HbSC, or HbCC, will lower the HbA1c value associated with a given level of glycemic control. Job Arboleda MD CHEMISTRY ORDERABLES Final Res ult Performing Organization Address [facility] Co de Phone Number [facility] [employer] [address] , [place] [address] * (ABNORMAL) COMPREHENSIVE METABOLIC PANEL (07/29/2025 3:15 PM EST) Sodium 144 136 - 145 mmol/L 07/29/2025 10:17 PM EST [facility] [employer] Potassium 3.7 3.5 - 5.0 mmol/L 07/29/2025 10:17 PM EST [facility] [employer] Chloride 104 98 - 107 mmol/L 07/29/2025 10:17 PM EST [facility] Total CO2 28 22 - 29 mmol/L 07/29/2025 10:17 PM EST [facility] Anion Gap 12 7 - 16 mmol/L 07/29/2025 10:17 PM EST [facility] Calcium 10.0 8.6 - 10.4 mg/dL 07/29/2025 10:17 PM EST [facility] Glucose Lvl 110(H) 70 - 99 mg/dL 07/29/2025 10:17 PM EST [facility] BUN 15 6 - 20 mg/dL 07/29/2025 10:17 PM EST [facility] Creatinine 0.68 0.51 - 1.30 mg/dL 07/29/2025 10:17 PM EST [facility] Albumin 4.4 3.5 - 5.2 gm/dL 07/29/2025 10:17 PM EST [facility] Total Protein 6.9 6.4 - 8.3 gm/dL 07/29/2025 10:17 PM EST [facility] Bili Total 0.2 0.2 - 1.3 mg/dL 07/29/2025 10:17 PM EST [facility] ALT 15 <=41 U/L 07/29/2025 10:17 PM EST [facility] AST 16 <=40 U/L 07/29/2025 10:17 PM EST [facility] Alk Phos 103 36 - 123 U/L 07/29/2025 10:17 PM EST [facility] eGFR (CKD-EPIcr 2020) 100 >=60 mL/min/1.7 3 m2 07/29/2025 10:17 PM EST [facility] Comment:Estimated GFR was ca lculated using the CKD-EPIcr (2020) equation refit without race. The equation is recommended by the National Kidney Foundation - [place] [employer] Nephrology Task Force. Blood VENOUS BLOOD / Unknown Venipuncture / Unknown 07/29/2025 3:15 PM EST 07/29/2025 3:15 PM EST us Job Arboleda MD CHEMISTRY ORDERABLES Final Res ult [facility] [address] , [place] [address] * URINE CULTURE (NO STAIN) (06/25/2025 3:59 PM EDT) Culture No Growth at 2 days. 06/27/2025 4:22 PM EDT [facility] Urine STRUCTURE OF URINARY TRACT PROPER / Unknown 06/25/2025 3:59 PM EDT 06/25/2025 3:59 PM EDT us Job Arboleda MD MICROBIOLOGY - GENERAL ORDERAB LES Final Result Performing Organization Address City/[facility]/ZIP Co de Phone Number [facility] [address] , [place] [address] * (ABNORMAL) SEP URINALYSIS POC (06/25/2025 3:57 PM EDT) UA Color POC Yellow Color 06/25/2025 3:[address] UA Appear POC Clear Clear 06/25/2025 3:[address] UA Gluc POC 500(A) Negative mg/dL 06/25/2025 3:[address] UA Bili POC Negative Negative 06/25/2025 3:[address] UA Ketones POC Negative Negative mg/dL 06/25/2025 3:[address] UA SG POC 1.010 1.001 - 1.035 no units 06/25/2025 3:[address] UA Blood POC Trace-Lysed( A) Negative 06/25/2025 3:[address] UA pH POC 6.0 5.0 - 8.0 pH 06/25/2025 3:[address] UA Protein POC Negative Negative mg/dL 06/25/2025 3:[address] UA Urobilinogen POC 0.2 0.2, 1.0 06/25/2025 3:[address] UA Nitrite POC Negative Negative 06/25/2025 3:[address] UA Leuk Est POC Negative Negative 3:59 PM EDT [facility] Urine STRUCTURE OF URINARY TRACT PROPER / Unknown 06/25/2025 3:57 PM EDT 06/25/2025 3:59 PM EDT Job Arboleda MD POINT OF CARE TEST ORDERABLES Final Result Performing Organization Address [facility] Co de Phone Number [address] [place] [address] * MICROALBUMIN/CREATININE RATIO URINE (01/18/2025 10:47 AM EDT) Urine Albumin <12.0 mg/L 01/18/2025 4:02 PM EDT [facility] Urine Creatinine 39.3 mg/dL 01/19/20 25 4:02 PM EDT [facility] Ur Albumin/Creat Ratio 01/18/2025 4:02 PM EDT [facility] Comment: Because the albumin level is below the level of detection in this urine specimen, the laboratory is unable to calculate a reliable albumin/creatinine ratio. Microalbuminuria is unlikely if the urine albumin concentration is less than 20- 30 mg/L in a random specimen. Urine STRUCTURE OF URINARY TRACT PROPER / Unknown 01/18/2025 10:47 AM EDT 01/18/2025 10:47 AM EDT Job Arboleda MD URINE ORDERABLES Final Result Performing Organization Address [facility] de Phone Number [facility] [address] [place] [address] , [place] [address] * MM MAMMO DIGITAL NATACHA SCREEN BILAT (10/18/2024 8:48 AM EST) Anatomical Region Laterality Modality Breast Bilateral Mammography 10/18/2024 8:48 AM EST Impressions 10/22/2024 8:16 AM EST Negative ([id number]) RECOMMENDATION: Routine Screening Mammogram in 1 Year Bilateral . . COMMENTS: Narrative 10/22/2024 8:16 AM EST EXAM: MM MAMMO DIGITAL NATACHA SCREEN BILAT EXAM DATE: 10/18/2024 8:48 AM INDICATION: Z12.31-Encounter for screening mammogram for malignant neoplasm of [id number]-CM COMPARISON STUDIES: Compared with prior studies the most recent being 01/10/2023 MM MAMMO DIGITAL NATACHA SCREEN BILAT at [facility] 06/05/2021 MM MAMMO DIGITAL NATACHA SCREEN BILAT at [facility] 05/22/2020 MM MAMMO DIGITAL NATACHA SCREEN BILAT at [facility] TISSUE DENSITY: There are scattered areas of fibroglandular density. FINDINGS: No mammographic evidence of malignancy. Procedure Note Juanjo Borden DO - 10/22/2024 EXAM: MM MAMMO DIGITAL NATACHA SCREEN BILAT EXAM DATE: 10/18/2024 8:48 AM INDICATION: Z12.31-Encounter for screening mammogram for malignantneoplasm of aphvhr-GEC-10-CM COMPARISON STUDIES: Compared with prior studies the most recent being 01/10/2023 MM MAMMO DIGITAL NATACHA SCREEN BILAT at [facility] 06/05/2021 MM MAMMO DIGITAL NATACHA SCREEN BILAT at [facility] 05/22/2020 MM MAMMO DIGITAL NATACHA SCREEN BILAT at [facility] TISSUE DENSITY: There are scattered areas of fibroglandular density. FINDINGS: No mammographic evidence of malignancy. IMPRESSION: Negative ([id number]) RECOMMENDATION: Routine Screening Mammogram in 1 Year Bilateral . . COMMENTS: Job Arboleda MD IM MAMMOGRAPHY ORDERABLES Fin al Result * OPS ANALYST CYTOLOGY REQUEST (PAP ONLY) (12/08/2023 2:16 PM EDT) CASE REPORT Gynecologic Cytology Report Case: [id number] Authorizing Provider: Ayde Wood DO Collected: 12/08/20231415 Ordering Location: [facility] Received: 12/08/2023 141 First Screen: Agustín Rod, CT Specimen: LIQUID-BASED PAP - CERVICAL/ENDOCERV ICAL, Cervix, Endocervical 12/12/2023 4:08 PM EDT [facility] PAP FINAL DIAGNOSIS Negative for intraepithelial lesion or malignancy 12/12/2023 4:08 PM EDT [facility] at 1608 EDT MICROSCOPIC DESCRIPTION Microscopic examination is performed and the findings corroborate the diagnosis. 12/12/2023 4:08 PM EDT [facility] PAP SMEAR ADEQUACY Satisfactory for evaluation 12/12/2023 4:08 PM EDT [facility] ENDOCERVICAL T-ZONE Transformation Zone Absent. This is not unusual in a post-menopausal woman. 12/12/2023 4:08 PM EDT [facility] EMBEDDED IMAGES 4:08 PM EDT [facility] PAP DISCLAIMER The Pap Smear is a screening test that aids in the detection of cervical cancer and cancer precursors. Both false positive and false negative results can occur. The test should be used at regular intervals, and positive results should be confirmed before definitive therapy. Processed using the ThinPrep Director Of Customer Acquisition Automated cytology screening device (Leo). 12/12/2023 4:08 PM EDT [facility] Thin Prep ENDOCERVICAL STRUCTURE / Unknown 12/08/2023 2:16 PM EDT 12/08/2023 2:16 PM EDT us Ayde Wood DO CYTOLOGY ORDERABLES Final Re sult [place] [id number] * GMED COLONOSCOPY (05/22/2015 8:15 AM EDT) 05/22/2015 8:[address] [facility] - 05/22/2015 9:11 AM EDT Internal hemorrhoids. Normal mucosa in the terminal ileum. Normal mucosa in the whole colon. (Biopsy). Abnormal digital rectal exam (Large anal tag). Plan: Await pathology results Align 4 mg 1 capsule po daily High Fiber Diet. Soluble fiber is recommended for diarrhea and insoluble fiber is recommended for constipation. Follow-up office visit in 2 months This section is an excerpt of the full report. us Jose Manuel Mooney MD GI PROCEDURE ORDERABLES Fin al Result [facility] [address] [place] [address] from Last 3 Months or Most Recently Relevant to Health Maintenance Insurance [address] [place] [address] [employer] [facility] MDR [employer] [facility] [address] [place] [address] [id number] [place] [id number] Advance Directives For more information, please contact: [phone] * Full Code (Latest Code Status on File) Date Activated Date Inactivated Comments 07/07/2021 9:07 PM 07/08/2021 8:51 PM * Full Code Date Activated Date Inactivated Comments 12/02/2019 10:11 PM 12/04/2019 11:00 PM * Full Code Date Activated Date Inactivated Comments 02/03/2019 4:46 PM 02/05/2019 5:39 PM * Full Code Date Activated Date Inactivated Comments 06/21/2016 12:04 AM 06/22/2016 8:10 PM * Full Code Date Activated Date Inactivated Comments 04/16/2016 4:54 PM 04/17/2016 5:07 PM Care Teams Ream Cutter Relationship Specialty Start Date End Date Job Arboleda MD [address] [place] [address] [place] [address] PCP - General Family Medicine 11/23/22 Jose Manuel Mooney MD Physician Internal Medicine-Gastroenterolo gy 04/17/15 Reynaldo Cervantes MD [address] [place] [address] [place] [address] Internal Medicine-Cardiovascular Disease 07/08/16 Corie Hennessy MD [facility] [place] [address] Consulting Physician Internal Medicine-Endocrinology, Diabetes & Metabolism 11/25/21
--- OUTSIDE RECORDS SUMMARY | 2025-09-04 14:11 | XMS_ITS | Encounter Summary ---
Author Organization [place] [address] Care Team Providers Care Spark Plug Assembler Name Role Phone Jose Manuel Mooney MD Unavailable [phone] Reynaldo Cervantes MD Unavailable [phone] Corie Hennessy MD Unavailable [phone] Job Arboleda MD Primary Care Provider [phone] Reason for Visit * Reason Comments Medication Refill Encounter Details Date Type Department Care Team (Late st Contact Info) Description 08/27/2025 Refill SEP [facility] [address] [place] [address] Job Arboleda MD [address] [place] [address] [place] [address] Medication Refill Social History Tobacco Use [...] Date Recorded PHQ-2 Total Score 0 07/29/2025 [facility] of Occupat ional Health - Occupational Stress [...] Refills Last Filled Start Date End Date LEVOthyroxine (SYNTHROID) 75 mcg Oral TabletIndications:Po stsurgical hypothyroidism TAKE 1 TABLET BY MOUTH EVERY DAY 100 Tablet 2 08/28/2025 documented in this encounter Miscellaneous Notes * Telephone Encounter - Liz Guerrero CPhT - 08/28/2025 11:03 AM EST Levothyroxine Future Visit: N/A Last Assessed Visit: 07/29/25 (AWV or similar dx) Follow-Up Date: 07/29/26 All protocols passed. Refills approved and sent to requesting pharmacy. Routed to [facility] if an appointment is needed. documented in this encounter Plan of Treatment Upcoming Encounters Date Type Department Care Team (Late st Contact Info) Description 09/09/2025 1:05 PM EST Office Visit SEP Ophthalmology Cov [address] [facility] [address] [place] [address] Silvino Marcus, OD [address] [place] [address] 11/06/2025 1:50 PM EST Office Visit GRT H&V [address] [address] Reynaldo Cervantes MD [address] [place] [address] [place] [address] documented as of this encounter Goals [...] as of this encounter Visit Diagnoses Diagnosis Postsurgical hypothyroidism documented in this encounter Discontinued Medications Medication Sig Discontinue Reason Start Date End Da te LEVOthyroxine (SYNTHROID) 75 mcg Oral TabletIndications:Postsurg ical hypothyroidism TAKE 1 TABLET BY MOUTH EVERY DAY 05/21/2025 08/28/2025 documented as of this encounter Care Teams Spark Plug Assembler Relationship Specialty Start Date End Date Job Arboleda MD [address] [place] [address] [place] [address] PCP - General Family Medicine 11/23/22 Jose Manuel Mooney MD Physician Internal Medicine-Gastroenterolo gy 04/17/15 Reynaldo Cervantes MD [address] [place] [address] [place] [address] Internal Medicine-Cardiovascular Disease 07/08/16 Corie Hennessy MD [address] [place] [address] Consulting Physician Internal Medicine-Endocrinology, Diabetes & Metabolism 11/25/21 documented as of this encounter
--- OUTSIDE RECORDS SUMMARY | 2025-09-04 14:11 | XMS_ITS | Encounter Summary ---
Author Organization [place] [address] Care Team Providers Care Final Inspector Movement Assembly Name Role Phone Jose Manuel Mooney MD Unavailable [phone] Reynaldo Cervantes MD Unavailable [phone] Corie Hennessy MD Unavailable [phone] Job Arboleda MD Primary Care Provider [phone] Encounter Details Date Type Department Care Team (Latest Contact Info) Description 07/30/2025 Results Follow-Up JUAN [place] [facility] [address] Job Arboleda MD [address] [place] [address] [place] [address] TSH REFLEX TO FT4, COMPREHENSIVE METABOLIC PANEL, HEMOGLOBIN A1C, Additional followed-up results: 2 Social History Tobacco Use Types Packs/Day Years [...] Date Recorded PHQ-2 Total Score 0 07/29/2025 [facility] ional Health - Occupational Stress [...] Gonzalez MA * Does this person have serious [...] Entry Date Author No 11/30/2022 10:25 AM EDWei Gonzales MA documented in this encounter Progress Notes * Job Arboleda MD - 07/30/2025 8:58 AM EST Thyroid level was normal. Kidney function liver function electrolytes are normal. Cholesterol numbers were overall in a good range. A1c was in a good range as well at 6.2% continue on current regiment. Blood counts are normal no anemia. Overall her blood work was good documented in this encounter Plan of Treatment Upcoming Encounters Date Type Department Care Team (Late st Contact Info) Description 09/09/2025 1:05 PM EST Office Visit SEP Ophthalmology Cov [address] [facility] [address] [place] [address] Silvino Marcus, OD [address] [place] [address] 11/06/2025 1:50 PM EST Office Visit [facility] H[facility] [address] [address] Reynaldo Cervantes MD [address] [place] [address] [place] [address] documented as of this encounter Goals Goal Patient Goal Type Associated Problems Recent Progress Patient-Stated? Author Blood Pressure < 140/90 Blood Pressure 130/70(2024 2:53 PM EST) No Alma Delia Manriquez RMA Maintain a healthy diet, exercise regularly and maintain an ideal body weight General No Alma Delia Manriquez, ASIYAA BMI (Calculated) < 30 General 37.8(07/29/20 25 2:53 PM EST) No Mallory Dickinson APRN A1C < 7.0 General On track( 022 10:44 AM EDT) Yes Virgen Lincoln RN Will take medications as directed by provider General On track( 022 10:44 AM EDT) Yes Virgen Lincoln RN HEMOGLOBIN A1C < 7 Result Component 6.2( 5 3:15 PM EST) No Mallory Dickinson APRN documented as of this encounter Visit Diagnoses Not on filedocumented in this encounter Care Teams Final Inspector Movement Assembly Relationship Specialty Start Date End Date Job Arboleda MD [address] [facility] [place] [address] PCP - General Family Medicine 11/23/22 Jos eManuel Mooney MD Physician Internal Medicine-Gastroenterolo gy 04/17/15 Reynadlo Cervantes MD [address] [place] [address] [place] [address] Internal Medicine-Cardiovascular Disease 07/08/16 Corie Hennessy MD [facility] [place] [address] Consulting Physician Internal Medicine-Endocrinology, Diabetes & Metabolism 11/25/21 documented as of this encounter
--- OUTSIDE RECORDS SUMMARY | 2025-09-04 14:11 | XMS_ITS | Encounter Summary ---
Author Organization [place] [address] Care Team Providers Care Piler Name Role Phone Sari Álvarez MD Primary Care Provider Unavaila Jose Manuel Solano MD Unavailable [phone] Sydni Hayes APRN Primary Care Provider Unava Reynaldo Gaytan MD Unavailable [phone] Lida Torres MD Primary Care Provider Mildred Sorenson MD Primary Care Provider [phone] Mildred Sorenson MD Primary Care Provider [phone] Arsenio Sorenson MD Primary Care Provider [phone] Mallory Dickinson APRN Primary Care Provider [phone] Leeanne Davis RN Unavailable UnavailDeandra Grant RN Unavailable UnavailVirgen Lopez RN Unavailable Unavailable Corie Hennessy MD Unavailable [phone] Apollo Arboleda MD Primary Care Provider [phone] Encounter Details Date Type Department Care Team (Late st Contact Info) Description 05/22/2015 Orders Only SEP Gastro [facility] [address] [facility] [address] [place] [address] Jose Manuel Mooney MD [address] [place] [address] Social History Tobacco Use Types Packs/Day Years Used Date Smoking Tobacco: Never Smokeless Tobacco: Never Alcohol Use Standard Drinks/Week Comments No 0 (1 standard drink = 0.6 oz pur e alcohol) Comments No Sex and Gender Information Value Date Recorded Sex Assigned at Not on file Legal Sex Female 1:04 PM EDT Gender Identity Not on file Sexual Orientation Not on file documented as of this encounter Plan of Treatment Upcoming Encounters Date Type Department Care Team (Late st Contact Info) Description 09/09/2025 1:05 PM EST Office Visit SEP Ophthalmology Cov [address] [facility] [address] [place] [address] Silvino Marcus, OD [address] [place], [place] [address] 11/06/2025 1:50 PM EST Office Visit [facility] H&V [address] [address] Reynaldo Cervantes MD [address] [place] [id number] documented as of this encounter Procedures Procedure Name Priority Date/Time Associated Diagnosis Comments GMED COLONOSCOPY Routine 05/22/2015 8:15 AM EDT documented in this encounter Results * GMED COLONOSCOPY (05/22/2015 8:15 AM EDT) 05/22/2015 8:15 AM EDT Impressions [facility] - 05/22/2015 9:11 AM EDT Internal [...] MD GI PROCEDURE ORDERABLES Fin al Result Performing Organization Address City/State/[facility] Co de Phone Number [facility] [address] [place] [address] documented in this encounter Visit Diagnoses Not on filedocumented in this encounter Additional Health Concerns Infection Onset Date Last Indicated Resolved Time R/O COVID-19 06/11/2022 06/11/2022 06/11/2022 11:1 8 PM EDT COVID-19 09/13/2022 09/13/2022 10/03/2022 10:1 4 PM EST COVID-19 07/27/2023 07/27/2023 08/16/2023 10:1 2 PM EST R/O COVID-19 08/30/2024 08/30/2024 08/30/2024 3:43 PM EST documented as of this encounter Care Teams Piler Relationship Specialty Start Date End Date Sari Álvarez MD PCP - General Family Medicine 04/03/15 03/16/16 Sydni Hayes APRN PCP - General Nurse Practitioner-Family 03/17/16 05/31/17 Lida Torres MD [address] [place] [address] PCP - General Family Medicine 06/01/17 07/02/17 Mildred Sorenson MD [address] [facility] [address] [place] [address] PCP - General Family Medicine 07/03/17 07/04/17 Mildred Sorenson MD [address] [facility] [address] [place] [address] PCP - General Family Medicine 07/05/17 08/08/17 Arsenio Sorenson MD [address] [facility] [address] [place] [address] PCP - General Family Medicine 08/09/17 06/26/18 Mallory Dickinson APRN [address] [place] [address] [place] [phone] PCP - General Nurse Practitioner-Family 06/27/18 11/22/22 Apollo Arboleda MD [address] [place] [address] [place] [address] PCP - General Family Medicine 11/23/22 Jose Manuel Mooney MD Physician Internal Medicine-Gastroenterol ogy 04/17/15 Reynaldo Cervantes MD [address] [place] [address] [place] [address] Internal Medicine-Cardiovascula r Disease 07/08/16 Leeanne Davis, RN Pc Support Specialist Registered Nurse 12/05/19 01/01/20 Deandra Renae, RN Pc Support Specialist Registered Nurse 07/09/21 07/09/21 Virgen Lincoln, RN Pc Support Specialist Registered Nurse 07/13/21 12/02/21 Corie Hennessy MD [address] [place], [place] [address] Consulting Physician Internal Medicine-Endocrinology , Diabetes & Metabolism 11/25/21 documented as of this encounter
--- OUTSIDE RECORDS SUMMARY | 2025-09-04 14:11 | XMS_ITS | Encounter Summary ---
Author Organization [place] [address] Care Team Providers Care Returning Officer Name Role Phone Jose Manuel Mooney MD Unavailable [phone] Reynaldo Cervantes MD Unavailable [phone] Corie Hennessy MD Unavailable [phone] Job Arboleda MD Primary Care Provider [phone] Reason for Visit * Reason Onset Date Comments Medication Refill 08/26/2025 Encounter Details Date Type Department Care Team (Late st Contact Info) Description 08/26/2025 Refill SEP Rayna [address] [place] [address] Job Arboleda MD [address] [place] [address] [place] [address] Medication Refill Social History Tobacco [...] Date Recorded PHQ-2 Total Score 0 07/29/2025 [facility] of Occupat ional Health - Occupational Stress [...] Refills Last Filled Start Date End Date metFORMIN (GLUCOPHAGE XR) 500 mg Oral ER 24 hr tabletIndications:Ty pe 2 diabetes mellitus with hyperlipidemia (HCC) Take 1 Tablet by mouth daily (with breakfast). 100 Tablet 1 08/28/2025 documented in this encounter Miscellaneous Notes * Telephone Encounter - Liz Guerrero CPhT - 08/28/2025 8:13 AM EST Metformin Future Visit: N/A Last Assessed Visit: 07/29/25 Follow-Up Date: 01/26/26 All protocols passed. Refills approved and sent to requesting pharmacy. Routed to [facility] if an appointment is needed. documented in this encounter Plan of Treatment Upcoming Encounters Date Type Department Care Team (Late st Contact Info) Description 09/09/2025 1:05 PM EST Office Visit SEP Ophthalmology Cov [address] [facility] [address] [place] [address] Silvino Marcus, OD [address] [place] [address] 11/06/2025 1:50 PM EST Office Visit GRT H&V [address] [address] Reynaldo Cervantes MD [address] [place] [address] [place] [address] documented as of this encounter Goals Goal [...] as of this encounter Visit Diagnoses Diagnosis Type 2 diabetes mellitus with hyperlipidemia (HCC) documented in this encounter Discontinued Medications Medication Sig Discontinue Reason Start Date End Da te metFORMIN (GLUCOPHAGE XR) 500 mg Oral ER 24 hr tabletIndications:Type 2 diabetes mellitus with hyperlipidemia (HCC) TAKE 1 TABLET BY MOUTH EVERY DAY WITH BREAKFAST Reorder 02/12/2025 08/26/2025 documented as of this encounter Care Teams Returning Officer Relationship Specialty Start Date End Date Job Arboleda MD [address] [place] [address] [place] [address] PCP - General Family Medicine 11/23/22 Jose Manuel Mooney MD Physician Internal Medicine-Gastroenterolo gy 04/17/15 Reynaldo Cervantes MD [address] [place] [address] [place] [address] Internal Medicine-Cardiovascular Disease 07/08/16 Corie Hennessy MD [address] [place] [address] Consulting Physician Internal Medicine-Endocrinology, Diabetes & Metabolism 11/25/21 documented as of this encounter
--- OUTSIDE RECORDS SUMMARY | 2025-09-04 14:11 | XMS_ITS | Encounter Summary ---
Author Organization [place] [address] Care Team Providers Care Account Support Manager Name Role Phone Jose Manuel Mooney MD Unavailable [phone] Reynaldo Cervantes MD Unavailable [phone] Corie Hennessy MD Unavailable [phone] Apollo Arboleda MD Primary Care Provider [phone] Reason for Visit * Reason Comments Medication Refill Encounter Details Date Type Department Care Team (Late st Contact Info) Description 08/04/2025 Refill SEP Rayna [address] [place] [address] Apollo Arboleda MD [address] [place] [address] [place] [address] Medication Refill Social History Tobacco Use [...] Date Recorded PHQ-2 Total Score 0 07/29/2025 [facility] of Occupat ional Health - Occupational Stress [...] 11/30/2022 10:25 AM EDWei Gonzales MA documented as of this encounter Mental Status * Because of a physical, mental or emotional condition, does this person have serious difficulty concentrating, remembering or making decisions? Answer Entry Date Author No 11/30/2022 10:25 AM Wei Tapia MA documented in this encounter Ordered Prescriptions Prescription Sig Dispense Quantity Refills Last Filled Start Date End Date cetirizine (ZYRTEC) 10 mg Oral Tablet TAKE 1 TABLET BY MOUTH EVERY DAY 30 Tablet 2 08/05/2025 documented in this encounter Plan of Treatment Upcoming Encounters Date Type Department Care Team (Late st Contact Info) Description 09/09/2025 1:05 PM EST Office Visit SEP Ophthalmology Cov [address] [facility] [address] [place] [address] Silvino Marcus, OD [address] [place] [address] 11/06/2025 1:50 PM EST Office Visit GRT H&V [address] [address] Reynaldo Cervantes MD [address] [place] [address] [place], [place] [id number] documented as of this encounter Goals Goal [...] On track( 10:44 AM EDT) Yes Virgen Lincoln, RN Will take medications as directed by provider General On track( 022 10:44 AM EDT) Yes Virgen Lincoln RN HEMOGLOBIN A1C < 7 Result Component 6.2( 5 3:15 PM EST) No Mallory Dickinson APRN documented as of this encounter Visit Diagnoses Not on filedocumented in this encounter Discontinued Medications Medication Sig Discontinue Reason Start Date End Da te cetirizine (ZYRTEC) 10 mg Oral Tablet Take 1 Tablet by mouth daily. 04/29/2025 08/05/2025 documented as of this encounter Care Teams Account Support Manager Relationship Specialty Start Date End Date Apollo Arboleda MD [address] [place] [address] [place] [address] PCP - General Family Medicine 11/23/22 Jose Manuel Mooney MD Physician Internal Medicine-Gastroenterolo gy 04/17/15 Reynaldo Cervantes MD [address] [place] [address] [place] [address] Internal Medicine-Cardiovascular Disease 07/08/16 Corie Hennessy MD [address] [place] [address] Consulting Physician Internal Medicine-Endocrinology, Diabetes & Metabolism 11/25/21 documented as of this encounter
--- OUTSIDE RECORDS SUMMARY | 2025-09-04 14:11 | XMS_ITS | Encounter Summary ---
Author Organization [place] [address] Care Team Providers Care Shop Teacher Name Role Phone Jose Manuel Mooney MD Unavailable [phone] Reynaldo Cervantes MD Unavailable [phone] Corie Hennessy MD Unavailable [phone] Job Arboleda MD Primary Care Provider [phone] Reason for Visit * Reason Comments Medication Refill Encounter Details Date Type Department Care Team (Late st Contact Info) Description 08/10/2025 Refill SEP Rayna [address] [place] [address] Reynaldo Cervantes MD [address] [place], [place] [id number] Medication Refill Social History Tobacco Use Types [...] Date Recorded PHQ-2 Total Score 0 07/29/2025 [facility] Occupat ional Health - Occupational Stress [...] 11/30/2022 10:25 AM EDWei Gonzales MA * Is the person blind or [...] Refills Last Filled Start Date End Date rosuvastatin (CRESTOR) 40 mg Oral TabletIndications:A SHD (arteriosclerotic heart disease) TAKE 1 TABLET BY MOUTH EVERY DAY AT NIGHT 90 Tablet 2 08/13/2025 documented in this encounter Miscellaneous Notes * Telephone Encounter - Tri Vega CPhT - 08/13/2025 7:38 AM EST Rosuvastatin - Refill request deferred to the office: Unsure of prescribing provider. Please confirm/update provider or provider location. documented in this encounter Plan of Treatment Upcoming Encounters Date Type Department Care Team (Late st Contact Info) Description 09/09/2025 1:05 PM EST Office Visit SEP Ophthalmology Cov [address] [facility] [address] [place] [address] Silvino Marcus, OD [address] [place] [address] 11/06/2025 1:50 PM EST Office Visit [facility] H[facility] [address] [address] Reynaldo Cervantes MD [address] [place] [address] [place] [address] documented as of this encounter Goals Goal Patient Goal Type Associated Problems Recent Progress Patient-Stated? Author Blood Pressure < 140/90 Blood Pressure 130/70(11/24/ 2025 2:53 PM EST) No Alma Delia Manriquez [...] Coronary atherosclerosis of unspecified type of vessel, [place] or graft documented in this encounter Discontinued Medications Medication Sig Discontinue Reason Start Date End Da te rosuvastatin (CRESTOR) 40 mg Oral TabletIndications:ASHD (arteriosclerotic heart disease) TAKE 1 TABLET BY MOUTH EVERY DAY AT NIGHT 11/14/2024 08/13/2025 documented as of this encounter Care Teams Shop Teacher Relationship Specialty Start Date End Date Job Arboleda MD [address] [place] [address] [place] [address] PCP - General Family Medicine 11/23/22 Jose Manuel Mooney MD Physician Internal Medicine-Gastroenterolo gy 04/17/15 Reynaldo Cervantes MD [address] [place] [address] [place] [address] Internal Medicine-Cardiovascular Disease 07/08/16 Corie Hennessy MD [address] [place] [address] Consulting Physician Internal Medicine-Endocrinology, Diabetes & Metabolism 11/25/21 documented as of this encounter
--- OUTSIDE RECORDS SUMMARY | 2025-09-04 14:11 | XMS_ITS | Encounter Summary ---
Author Organization [place] [address] Care Team Providers Care Pediatric Dietician Name Role Phone Sari Álvarez MD Primary Care Provider Unavaila Jose Manuel Solano MD Unavailable [phone] Sydni Hayes APRN Primary Care Provider Unava Reynaldo Gaytan MD Unavailable [phone] Lida Torres MD Primary Care Provider Mildred Sorenson MD Primary Care Provider [phone] Mildred Sorenson MD Primary Care Provider [phone] Arsenio Sorenson MD Primary Care Provider [phone] Mallory Dickinson APRN Primary Care Provider [phone] Leeanne Davis RN Unavailable UnavailDeandra Grant RN Unavailable UnavailVirgen Lopez RN Unavailable Unavailable Corie Hennessy MD Unavailable [phone] Apollo Arboleda MD Primary Care Provider [phone] Encounter Details Date Type Department Care Team (Late st Contact Info) Description 05/22/2015 Orders Only SEP Gastro [facility] [address] [facility] [address] [place] [address] Jose Manuel Mooney MD [address] [place] [address] Social History Tobacco Use Types Packs/Day Years [...] EST Office Visit SEP Ophthalmology Cov [address] [facility] [address] [place] [address] Silvino Marcus, OD [address] [place], [place] [address] 11/06/2025 1:50 PM EST Office Visit GRT H&V [address] [address] Reynaldo Cervantes MD [address] [place] [id number] documented as of this encounter Procedures Procedure Name Priority Date/Time Associated Diagnosis Comments GMED EGD Routine 05/22/2015 8:00 AM EDT documented in this encounter Results * GMED EGD (05/22/2015 8:00 AM EDT) 05/22/2015 8:00 AM EDT Impressions [facility] - 05/22/2015 9:21 AM EDT Normal esophagus. Normal mucosa in the whole stomach. (Biopsy). Erythema, granularity and an area of the appearance of duodenal diverticulum vs healing ulcer in the duodenal bulb compatible with duodenitis. (Biopsy). Plan: Await pathology results Protonix 40 mg 1 po daily Proceed with colonoscopy This section is an excerpt of the full report. us Jose Manuel Mooney MD GI PROCEDURE ORDERABLES Ray isacc Result - Final [facility] [address] [place] [address] documented in this encounter Visit Diagnoses Not on filedocumented in this encounter Additional Health Concerns Infection Onset Date Last Indicated Resolved Time R/O COVID-19 06/11/2022 06/11/2022 06/11/2022 11:1 8 PM EDT COVID-19 09/13/2022 09/13/2022 10/03/2022 10:1 4 PM EST COVID-19 07/27/2023 07/27/2023 08/16/2023 10:1 2 PM EST R/O COVID-19 08/30/2024 08/30/2024 08/30/2024 3:43 PM EST documented as of this encounter Care Teams Pediatric Dietician Relationship Specialty Start Date End Date Sari Álvarez MD PCP - General Family Medicine 04/03/15 03/16/16 Sydni Hayes APRN PCP - General Nurse Practitioner-Family 03/17/16 05/31/17 Lida Torres MD [address] [place] [address] PCP - General Family Medicine 06/01/17 07/02/17 Mildred Sorenson MD [address] [place] [phone] PCP - General Family Medicine 07/03/17 07/04/17 Mildred Sorenson MD [address] [place] [phone] PCP - General Family Medicine 07/05/17 08/08/17 Arsenio Sorenson MD [address] [facility] [address] [place] [address] PCP - General Family Medicine 08/09/17 06/26/18 Mallory Dickinson APRN [address] [place] [address] [place] [phone] PCP - General Nurse Practitioner-Family 06/27/18 11/22/22 Apollo Arboleda MD [address] [place] [address] [place] [address] PCP - General Family Medicine 11/23/22 Jose Manuel Mooney MD Physician Internal Medicine-Gastroenterol ogy 04/17/15 Reynaldo Cervantes MD [address] [place] [address] [place] [address] Internal Medicine-Cardiovascula r Disease 07/08/16 Leeanne Davis, RN Patient Registration Specialist Registered Nurse 12/05/19 01/01/20 Deandra Renae, RN Patient Registration Specialist Registered Nurse 07/09/21 07/09/21 Virgen Lincoln, RN Patient Registration Specialist Registered Nurse 07/13/21 12/02/21 Corie Hennessy MD [address] [place] [address] Consulting Physician Internal Medicine-Endocrinology , Diabetes & Metabolism 11/25/21 documented as of this encounter
[2025-09-04 14:27] LABS: Coronavirus 19, PCR Not Detected (NotDetected); Influenza A, PCR Not Detected (NotDetected); Influenza B, PCR Not Detected (NotDetected)
[2025-09-04 14:27] LABS: Bilirubin,Urine Negative (Negative); Color,Urine YELLOW (Yellow); Glucose,Urine (UA) 3+ (Negative); Ketones,Urine Negative (Negative); Leukocyte Esterase,Urine Negative (Negative); Microscopic, Urine URINE MICROSCOPIC (MICROSCOPIC); PH,Urine 5.5 (5.0-8.5); Protein,Urine Negative (Negative); Specific Gravity, Urine 1.015 (1.005-1.030); Urobilinogen,Urine 0.2 EU/dl (0.2)
[2025-09-04 14:32] LABS: Bacteria,Urine Trace /lpf; RBC,Urine Occasional #/hpf (0-3)
[2025-09-04 14:38] LABS: Hematocrit 45.9 % (37.0-47.0); Hemoglobin 14.6 g/dL (12.2-16.2); Immature Granulocytes % 0.7 %; Mean Corpuscular HGB Conc 31.8 g/dL (31.8-35.4); Mean Corpuscular Hemoglobin 27.0 pg (27.0-31.2); Mean Corpuscular Volume 84.8 fl (81-99); Nucleated Red Blood Cells % 0 %; Platelet Count 319 K/mm3 (142-424); Red Blood Count 5.41 M/mm3 (4.20-5.40); Red Cell Distribution Width-SD 48.8 fL; White Blood Count 12.5 K/mm3 (4.8-10.8)
[2025-09-04 14:42] LABS: Alanine Aminotransferase 23 U/L (12-78); Albumin Level 4.7 g/dl (3.5-5.0); Albumin/Globulin Ratio 1.4 (1.1-1.8); Alkaline Phosphatase 77 U/L (38-126); Anion Gap 15.4 mEq/L (5-15); Aspartate Amino Transferase 46 U/L (14-36); Bilirubin,Total 0.9 mg/dl (0.2-1.3); Blood Urea Nitrogen 12 mg/dl (7-17); Calcium 9.2 mg/dl (8.4-10.2); Carbon Dioxide 22 mmol/L (22.0-30.0); Chloride 105 mmol/L (98-107); Creatinine Clearance Estimated 94 mL/min (50-200); Creatinine,Serum 0.90 mg/dl (0.52-1.04); Estimated Glomerular Filt Rate 65 ml/min (>60); GFR (African American) 78 ML/MIN (>60); Globulin 3.3 g/dL (1.3-3.2); Glucose 163 mg/dl (74-100); Magnesium 1.9 mg/dl (1.6-2.3); Potassium 4.4 mmoL/L (3.5-5.1); Sodium 138 mmol/L (136-145); Total Protein,Serum 8.0 g/dl (6.3-8.2)
[2025-09-04] MEDS: ASPIRIN 81MG CHEWABLE TABLET 162 MG PO (14:43)
[2025-09-04 14:46] LABS: D-Dimer 6.06 ug/mL (0.0-0.5)
[2025-09-04 14:53] LABS: NT Pro Brain Natriuretic Pep. 34.7 pg/mL (0-125)
[2025-09-04 14:57] LABS: Troponin I < 0.01 ng/ml (0.00-0.034)
--- NOTE | 2025-09-04 15:06 | CT_ITS ---
FINAL REPORT TECHNIQUE: Axial imaging of the chest is obtained after the administration of contrast. 3-D MIP reformatted images were also obtained and reviewed per PE protocol. CLINICAL HISTORY: elevated dimer/tachycardia COMPARISON: None FINDINGS: The pulmonary arteries are well filled. There is no evidence of pulmonary embolus. There is no aortic dissection. Heart size is mildly enlarged. There is no mediastinal, hilar, or axillary lymphadenopathy. There is atelectasis or scar in the inferior right upper lobe. The lungs are otherwise clear. There is no pleural or pericardial effusion. Limited evaluation of the upper abdomen is without acute abnormality. No acute osseous abnormality. IMPRESSION: No evidence of pulmonary embolism or aortic dissection. Reviewed, Interpreted and Dictated by Keiko Way MD Transcribed by Leda An Authenticated and [facility]
[2025-09-04] MEDS: SODIUM CHLORIDE 0.9% 10ML SYR (RAD ONLY) 10 ML IV (15:25)
[2025-09-04] MEDS: IOPAMIDOL-370 (76%);100ML BOTTLE 80 ML IV (15:25)
[2025-09-04] MEDS: 0.9 % SODIUM CHLORIDE 50 ML VIAL IV (15:25)
[2025-09-04] MEDS: 0.9 % SODIUM CHLORIDE 1000ML 1,000 ML 999 ML IV (15:43)
[2025-09-04] MEDS: ACETAMINOPHEN 500MG TAB 1000 MG PO (16:26)
[2025-09-04 16:51] LABS: Lipase 131 U/L (23-300)
[2025-09-04 17:07] LABS: Free T4 (Free Thyroxine) 1.04 ng/dl (0.78-2.19)
[2025-09-04 17:22] LABS: Thyroid Stimulating Hormone 0.79 uIU/mL (0.465-4.68)
[2025-09-04 18:11] LABS: Troponin I < 0.01 ng/ml (0.00-0.034)
== END 2025-09-04 19:01 | disposition home or self-care (01) ==
PROVIDERS: Emergency Medicine; Nurse Practitioner Family; Emergency Provider Student in an Organized Health Care Education/Training Program; PCP Pediatrics
DX: R07.9 Chest pain, unspecified (principal); R00.0 Tachycardia, unspecified; I44.7 Left bundle-branch block, unspecified; R06.82 Tachypnea, not elsewhere classified; R79.1 Abnormal coagulation profile; R53.1 Weakness; I10 Essential (primary) hypertension
CPT/HCPCS: 71045; 71275; 80053; 81001; 83605; 83690; 83735; 83880; 84439; 84443; 84484; 85025; 85378; 87636; 93005; 96360; 99285; J7030; Q9967